=== PATIENT | female | born 1930 | race Caucasian/White ===

== ENCOUNTER 2016-09-28 11:56 | Emergency (ER) | payer MEDICARE ==
[~2016-09-28] VITALS: Ht 167.6 cm; Wt 112.9 kg
[~2016-09-28 11:56] MED LIST: ASPI325T PO; ATEN-102 PO; GLUCTAB PO; LOVA40TA PO
[2016-09-28 12:00] VITALS: BP 208/85; PULSE 76; RESP 20; TEMP 97.6; O2SAT 98
[2016-09-28] MEDS ORDERED: FOSA70TA PO (12:23)
[2016-09-28] MEDS ORDERED: A REDS 2 PO (12:23)
[2016-09-28] MEDS ORDERED: LOVA40TA PO (12:23)
[2016-09-28] MEDS ORDERED: ASPI81CH37 CHEW (12:23)
[2016-09-28] MEDS ORDERED: ALPH200C2 PO (12:23)
[2016-09-28] MEDS ORDERED: MULT-159 PO (12:23)
[2016-09-28] MEDS ORDERED: VITA100064 PO (12:23)
[2016-09-28] MEDS ORDERED: CARB25TA9 PO (12:23)
[2016-09-28] MEDS ORDERED: ATEN50TA PO (12:23)
[2016-09-28] MEDS ORDERED: SODIUM CHLORIDE 0.9% FLUSH 10 ML FLUSH IVF PRN (12:30)
--- NOTE | 2016-09-28 12:30 | PD ---
HPI Chief Complaint: Neuro Symptoms/ Deficits Time Seen by Provider: 12:26 Travel History International Travel<30 days: No Contact w/Intl Traveler<30days: No Traveled to known affect area: No History of Present Illness HPI Patient presents with complaints of TIA type symptoms. States she was getting her hair done this morning when she experienced 3 minutes of difficulty with speech and right lower extremity weakness. Occurred approximately one hour prior to arrival. Denies any upper extremity weakness. Followed by neurology Dr. Benedict for Parkinson's. Reports a recent MRI. Past medical history for hypertension hyperlipidemia and osteoporosis. States she took her blood pressure medications last night. Takes her medications at night. Compliant with 2 baby aspirins daily. Symptom free at this time. She is not a diabetic [facility] Past Medical History High Cholesterol: Yes Diabetes: Yes Patient Takes Glucophage: No Hypertension: Yes Parkinson's Disease: Yes ?: Not Menopausal: Yes Past Surgical History Other Surgery: Yes (partial thyroidectomy ) Social History Alcohol Use: Yes (wine occasionally) Tobacco Use: No Substance Use: No Allergies-Medications (Allergen,Severity, Reaction): Coded Allergies: Sulfa (Verified Allergy, Unknown, 09/28/16) states she doesn't remember Reported Meds & Prescriptions Reported Meds & Active Scripts Active Reported Alpha Lipoic Acid 200 Mg Cap 200 Mg PO DAILY Vitamin D3 (Cholecalciferol) 1,000 Unit Tab 1,000 Units PO DAILY Multivitamins (Multivitamin) 1 Each Tab.chew 1 Tab PO DAILY Fosamax (Alendronate Sodium) 70 Mg Tab 70 Mg PO Q7D [A Reds 2] 1 Tab PO BID Aspirin Low Dose (Aspirin) 81 Mg Chew 162 Mg CHEW DAILY Atenolol 50 Mg Tab 50 Mg PO HS Lovastatin 40 Mg Tab 40 Mg PO DAILY Carbidopa-Levodopa 25-100 Mg Tab 1 Tab PO QID Review of Systems General / Constitutional: No: Fever Eyes: No: Visual changes HENT: No: Headaches Cardiovascular: No: Chest Pain or Discomfort Respiratory: No: Shortness of Breath Gastrointestinal: No: Abdominal Pain Genitourinary: No: Dysuria Musculoskeletal: No: Pain Skin: No Rash Neurologic: Positive: Coordination Problem, Slurred Speech, No: Weakness Psychiatric: No: Depression Endocrine: No: Polydipsia Hematologic/Lymphatic: No: Easy Bruising Physical Exam Narrative GENERAL: [-] SKIN: Focused skin assessment warm/dry. HEAD: Atraumatic. Normocephalic. EYES: Pupils equal and round. No scleral icterus. No injection or drainage. ENT: No nasal bleeding or discharge. Mucous membranes pink and moist. NECK: Trachea midline. No JVD. CARDIOVASCULAR: Regular rate and rhythm. No murmur appreciated. RESPIRATORY: No accessory muscle use. Clear to auscultation. Breath sounds equal bilaterally. GASTROINTESTINAL: Abdomen soft, non-tender, nondistended. Hepatic and splenic margins not palpable. MUSCULOSKELETAL: No obvious deformities. No clubbing. No cyanosis. No edema. NEUROLOGICAL: Awake and alert. No obvious cranial nerve deficits. Motor grossly within normal limits. Normal speech. PSYCHIATRIC: Appropriate mood and affect; insight and judgment normal. Data Data Last Documented VS Vital Signs Date Time Temp Pulse Resp B/P Pulse Ox O2 Delivery O2 Flow Rate FiO2 09/28/16 13:59 142/68 09/28/16 12:55 69 18 99 Room Air 09/28/16 12:00 97.6 Orders Electrocardiogram (09/28/16 12:30) Complete Blood Count With Diff (09/28/16 12:30) Comprehensive Metabolic Panel (09/28/16 12:30) Urinalysis - C+S If Indicated (09/28/16 12:30) Ct Brain W/O Iv Contrast(Rout) (09/28/16 12:30) Ecg Monitoring (09/28/16 12:30) Iv Access Insert/Monitor (09/28/16 12:30) Oximetry (09/28/16 12:30) Sodium Chloride 0.9% Flush (Ns Flush) (09/28/16 12:30) Clonidine (Catapres) (09/28/16 12:45) Dipyridamole-Aspirin 200-25 Mg (Aggrenox (09/28/16 14:00) Labs Laboratory Tests Test 09/28/16 09/28/16 12:50 14:17 White Blood Count 7.8 TH/MM3 Red Blood Count 4.34 MIL/MM3 Hemoglobin 13.1 GM/DL Hematocrit 39.0 % Mean Corpuscular Volume 89.8 FL Mean Corpuscular Hemoglobin 30.3 PG Mean Corpuscular Hemoglobin 33.7 % Concent Red Cell Distribution Width 12.1 % Platelet Count 200 TH/MM3 Mean Platelet Volume 8.3 FL Neutrophils (%) (Auto) 69.9 % Lymphocytes (%) (Auto) 19.9 % Monocytes (%) (Auto) 8.8 % Eosinophils (%) (Auto) 1.0 % Basophils (%) (Auto) 0.4 % Neutrophils # (Auto) 5.4 TH/MM3 Lymphocytes # (Auto) 1.6 TH/MM3 Monocytes # (Auto) 0.7 TH/MM3 Eosinophils # (Auto) 0.1 TH/MM3 Basophils # (Auto) 0.0 TH/MM3 CBC Comment DIFF FINAL Differential Comment Sodium Level 137 MEQ/L Potassium Level 4.7 MEQ/L Chloride Level 103 MEQ/L Carbon Dioxide Level 24.5 MEQ/L Anion Gap 10 MEQ/L Blood Urea Nitrogen 29 MG/DL Creatinine 1.10 MG/DL Estimat Glomerular Filtration 47 ML/MIN Rate Random Glucose 94 MG/DL Calcium Level 9.2 MG/DL Total Bilirubin 0.5 MG/DL Aspartate Amino Transf 20 U/L (AST/SGOT) Alanine Aminotransferase 11 U/L (ALT/SGPT) Alkaline Phosphatase 88 U/L Total Protein 7.2 GM/DL Albumin 3.6 GM/DL Urine Collection Type CLEAN CATCH Urine Color STRAW Urine Turbidity CLEAR Urine pH 6.0 Urine Specific [place] 1.006 Urine Protein NEG mg/dL Urine Glucose (UA) NEG mg/dL Urine Ketones NEG mg/dL Urine Occult Blood NEG Urine Nitrite NEG Urine Bilirubin NEG Urine Leukocyte Esterase SMALL Urine WBC 3-5 /hpf Urine Squamous Epithelial > 8 /hpf Cells Urine Transitional Epithelial 0-5 /hpf Cells Urine Amorphous Sediment MOD Urine Hyaline Casts 0-2 /lpf Microscopic Urinalysis Comment CULT NOT INDICATED Urine Collection Time 1417 MDM Medical Decision Making Medical Screen Exam Complete: Yes Emergency Medical Condition: Yes Differential Diagnosis TIA, CVA, hypoglycemia, dysrhythmia, electrolyte imbalance, sepsis, UTI Narrative Course Assessment and plan discussed with patient at bedside. Elevated blood pressure noted, clonidine provided. ABCD squared scoring determined to be at low risk. EKG reveals sinus rhythm with first-degree AV block rate of 65. Blood pressure much improved with clonidine. Last [address] 09/28/16 1230 Signed Impressions: Service Date/Time: Wednesday, September 28, 2016 13:01 - CONCLUSION: No evidence of acute infarct, hemorrhage, mass or edema. Jose Carlos Modi MD Patient reports she has not taken any sulfa medications and 72 years. Unknown if truly allergic. Tolerated Aggrenox dose while in the emergency room Diagnosis Primary Impression: TIA (transient ischemic attack) Qualified Code: G45.9 - Transient cerebral ischemia, unspecified type Additional Instructions: Patient is scheduled to follow-up with neurology this week. Encouraged her follow up with PCP as well. Encouraged to return to the emergency room with any change or new onset of symptoms. Discontinue aspirin, encouraged a blood pressure log for evaluation with her PCP. Encouraged to take her atenolol every morning rather than daily at bedtime. Med/Other Pt SpecificInfo: Prescription(s) given Scripts Dipyridamole-Aspirin (Aggrenox)200-25 Mg Cap1 Cap PO BID #60 CAP Ref 0 Prov:Jordon Shafer MD 09/28/16 Disposition: 01 DISCHARGE HOME Condition: Good Jordon Shafer MD Sep 28, 2016 12:30
[2016-09-28] MEDS ORDERED: cloNIDine HCL 0.1 MG TAB PO ONE (12:45)
[2016-09-28 12:55] VITALS: BP 191/80; PULSE 69; RESP 18; O2SAT 99
[2016-09-28 12:59] LABS: AUTOMATED NEUTROPHIL # 5.4 TH/MM3 (1.8-7.7); BASOPHIL % 0.4 % (0.0-2.0); EOSINOPHIL # 0.1 TH/MM3 (0-0.4); HEMO FLAGS DIFF FINAL; LYMPH % 19.9 % (9.0-44.0); LYMPHOCYTE # 1.6 TH/MM3 (1.0-4.8); MEAN CELL VOLUME 89.8 FL (80.0-100.0); MEAN CORPUSCULAR HEMOGLOBIN 30.3 PG (27.0-34.0); MEAN CORPUSCULAR HGB CONC 33.7 % (32.0-36.0); MONO % 8.8 % (0.0-8.0); NEUT % 69.9 % (16.0-70.0); PLATELET COUNT 200 TH/MM3 (150-450); RED BLOOD COUNT 4.34 MIL/MM3 (4.00-5.30); RED CELL DISTRIBUTION WIDTH 12.1 % (11.6-17.2); WHITE BLOOD COUNT 7.8 TH/MM3 (4.0-11.0)
[2016-09-28 13:18] LABS: CHLORIDE 103 MEQ/L (98-107); POTASSIUM 4.7 MEQ/L (3.5-5.1); SODIUM (NA) 137 MEQ/L (136-145)
--- NOTE | 2016-09-28 13:19 | RADRPT ---
EXAM DATE/TIME: 09/28/2016 13:01 [facility] COMPARISON: No previous studies available for comparison. INDICATIONS : Unable to focus & unable to lift right foot.Hx parkinson's RADIATION DOSE: 66.79 CTDIvol (mGy) MEDICAL HISTORY : Parkinson's. Hypertension. SURGICAL HISTORY : Partial thyroidectomy. ENCOUNTER: Initial ACUITY: 1 day PAIN SCALE: 0/10 LOCATION: cranial TECHNIQUE: Multiple contiguous axial images were obtained of the head. Using automated exposure control and adjustment of the mA and/or kV according to patient size, radiation dose was kept as low as reasonably achievable to obtain optimal diagnostic quality images. DICOM format image data is av ailable electronically for review and comparison. FINDINGS: CEREBRUM: The ventricles are normal for age. No evidence of midline shift, mass lesion, hemorrha ge or acute infarction. No extra-axial fluid collections are seen. POSTERIOR FOSSA: The cerebellum and brainstem are intact. The 4th ventricle is midline. The cer ebellopontine angle is unremarkable. EXTRACRANIAL: The visualized portion of the orbits is intact. SKULL: The calvaria is intact. No evidence of skull fracture. CONCLUSION: No evidence of acute infarct, hemorrhage, mass or edema. Jose Carlos Modi MD on September 28, 2016 at 13:17 Board Certified Radiologist. This report was verified electronically.
[2016-09-28 13:21] LABS: ANION GAP 10 MEQ/L (5-15); BICARBONATE 24.5 MEQ/L (21.0-32.0); BLOOD UREA NITROGEN 29 MG/DL (7-18)
[2016-09-28 13:24] LABS: ALT (GPT) 11 U/L (10-53); AST (GOT) 20 U/L (15-37); GLOMERULAR FILTRATION RATE 47 ML/MIN (>89)
[2016-09-28 13:26] LABS: TOTAL BILIRUBIN ADULT 0.5 MG/DL (0.2-1.0)
[2016-09-28 13:27] LABS: ALKALINE PHOSPHATASE 88 U/L (45-117)
[2016-09-28 13:59] VITALS: BP 142/68
[2016-09-28] MEDS ORDERED: DIPYRIDAMOLE/ASPIRIN 200 MG/25 MG CAP PO ONE (14:00)
[2016-09-28 14:24] LABS: BLOOD, URINE NEG (NEG); GLUCOSE,URINE NEG (NEG); KETONE, URINE NEG (NEG); NITRITE,URINE NEG (NEG)
[2016-09-28 14:27] LABS: METHOD OF COLLECTION CLEAN CATCH; URINE COLOR STRAW (YELLW/STRAW)
[2016-09-28 14:29] LABS: COMMENT (UR) CULT NOT INDICATED; CULTURE IF INDICATED CULT NOT INDICATED; SQUAMOUS EPITHELIAL CELL URINE > 8 /hpf (0-5)
[2016-09-28 14:30] LABS: COMMENT2 (UR) MUCOUS PRESENT
[2016-09-28 14:31] LABS: HYALINE CAST, URINE 0-2 /lpf (RARE); TRANSITIONAL EPI CELLS, URINE 0-5 /hpf
[2016-09-28] MEDS ORDERED: AGGR20025 PO (14:35)
--- NOTE | 2016-09-28 17:15 | EKG ---
Date Performed: 09/28/2016 Time Performed: 12:47:51 PTAGE: 86 years EKG: Sinus rhythm WITH FIRST DEGREE AV BLOCK ABNORMAL ECG Compared to prior tracing no significant change PREVIOUS TRACING : 06/12/2013 10.54 DOCTOR: Philip Beal Interpretating Date/Time 09/28/2016 17:12:46
[2016-10-04] MEDS ORDERED: MULT10CA PO (11:32)
== END 2016-09-28 14:54 | disposition home or self-care (01) ==
LOC: PHED 11:56
DX: G45.9 Transient cerebral ischemic attack, unspecified (principal); G20 Parkinson's disease; I10 Essential (primary) hypertension; Z79.899 Other long term (current) drug therapy
CPT/HCPCS: 70450; 80053; 81001; 85025; 93005; 99285

== ENCOUNTER 2016-10-09 09:50 | Observation (INO) | payer MEDICARE ==
[2016-10-09] VITALS (7 sets, daily range): BP systolic 125–145; BP diastolic 53–67; PULSE 66–75; RESP 16–18; TEMP 97.5–98.2; O2SAT 95–97
[~2016-10-09] VITALS: Ht 167.6 cm; Wt 111.1 kg
[~2016-10-09 09:50] MED LIST changes: +AGGR20025 PO; +ALPH200C2 PO; -ASPI325T PO; +ASPI81CH37 CHEW; -ATEN-102 PO; +ATEN50TA PO; +CARB25TA9 PO; +FOSA70TA PO; -GLUCTAB PO; +MULT-159 PO; +MULT10CA PO; +VITA100064 PO
[2016-10-09] MEDS ORDERED: SODIUM CHLORIDE 0.9% FLUSH 10 ML FLUSH IVF PRN (10:45)
--- NOTE | 2016-10-09 10:49 | PD ---
HPI Chief Complaint: Neuro Symptoms/ Deficits Time Seen by Provider: 10:05 Travel History International Travel<30 days: No Contact w/Intl Traveler<30days: No Traveled to known affect area: No History of Present Illness HPI 86-year-old woman who presents to the emergency department complaining of back pain, TIA symptoms, and chest pain. She reports a history of chronic back problems. She has pain daily that limits her activities. Is acutely worse with activity. She reports that this back pain was worse over the past couple days. Chest reports some pain in the hips. Along with this she's also reported some pain and pressure in her chest which is new for her. She states she's had some limitation or activities due to shortness of breath. Together with this she's also been having intermittent episodes of speech difficulty. This first started several days ago when she had an episode of right sided weakness and speech difficulties lasted just a minute or 2. She was seen in the emergency department at that time. She was felt to be low risk. She follows with Dr. Audra cisneros for Parkinson's. She had a CT scan some labs on that were normal. She is recommended to follow-up for possible TIA. She has since followed up with Dr. Audra cisneros. 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 She saw Dr. Audra cisneros since he seen emergency Department, no additional tests were ordered. They did change the timing of her blood pressure medicine and started her on additional aspirin. She reports that she has since then had 2 more episodes, lasting just one to 2 minutes at a time, consisting of just speech difficulty, including one today. Because of the back pain chest pain and TIA symptoms she presents to the emergency department. History Past Medical History Narrative Medical Parkinson's Hypertension hyperlipidemia Osteoporosis Menopausal: Yes Social History Alcohol Use: Yes (wine occasionally) Tobacco Use: No Allergies-Medications (Allergen,Severity, Reaction): Coded Allergies: Sulfa (Sulfonamide Antibiotics) (Unverified Allergy, Unknown, 10/09/16) states she doesn't remember Reported Meds & Prescriptions Reported Meds & Active Scripts Active Aggrenox (Dipyridamole/Aspirin) 200-25 Mg Cap 1 Cap PO BID Reported Preservision Areds 2 Softgel (Vit C/E/Zn/Coppr/Lutein/Zeaxan) 1 Each Capsule 1 Cap PO BID Alpha Lipoic Acid 200 Mg Cap 200 Mg PO DAILY Vitamin D3 (Cholecalciferol) 1,000 Unit Tab 1,000 Units PO DAILY Multivitamins (Multivitamin) 1 Each Tab.chew 1 Tab PO DAILY Fosamax (Alendronate Sodium) 70 Mg Tab 70 Mg PO Q7D Aspirin Low Dose (Aspirin) 81 Mg Chew 162 Mg CHEW DAILY Atenolol 50 Mg Tab 50 Mg PO HS Lovastatin 40 Mg Tab 40 Mg PO DAILY Carbidopa-Levodopa 25-100 Mg Tab 1 Tab PO QID Review of Systems Except as stated in HPI: all other systems reviewed are Neg Physical Exam Narrative GENERAL: Well-appearing 86-year-old woman, no acute distress. SKIN: Focused skin assessment warm/dry. HEAD: Atraumatic. Normocephalic. EYES: Pupils equal and round. No scleral icterus. No injection or drainage. ENT: No nasal bleeding or discharge. Mucous membranes pink and moist. NECK: Trachea midline. No JVD. CARDIOVASCULAR: Regular rate and rhythm. No murmur appreciated. RESPIRATORY: No accessory muscle use. Clear to auscultation. Breath sounds equal bilaterally. GASTROINTESTINAL: Abdomen soft, non-tender, nondistended. Hepatic and splenic margins not palpable. MUSCULOSKELETAL: No obvious deformities. No clubbing. No cyanosis. No edema. NEUROLOGICAL: Awake and alert. No obvious cranial nerve deficits. Motor grossly within normal limits. Normal speech. PSYCHIATRIC: Appropriate mood and affect; insight and judgment normal. Data Data Last Documented VS Vital Signs Date Time Temp Pulse Resp B/P (MAP) Pulse Ox O2 Delivery O2 Flow Rate FiO2 10/09/16 11:41 70 133/56 (81) 97 10/09/16 10:00 98.0 16 Orders Orders Electrocardiogram (10/09/16 10:34) Complete Blood Count With Diff (10/09/16 10:34) Comprehensive Metabolic Panel (10/09/16 10:34) Magnesium (Mg) (10/09/16 10:34) Prothrombin Time / Inr (Pt) (10/09/16 10:34) Act Partial Throm Time (Ptt) (10/09/16 10:34) Troponin I (10/09/16 10:34) Ecg Monitoring (10/09/16 10:34) Iv Access Insert/Monitor (10/09/16 10:34) Oximetry (10/09/16 10:34) Oxygen Administration (10/09/16 10:34) Sodium Chloride 0.9% Flush (Ns Flush) (10/09/16 10:45) Chest, Pa & Lat (10/09/16 10:34) Urinalysis - C+S If Indicated (10/09/16 10:48) Admit Order (Ed Use Only) (10/09/16 ) Labs Laboratory Tests Test 10/09/16 10:45 10/09/16 11:07 White Blood Count 7.0 TH/MM3 Red Blood Count 4.28 MIL/MM3 Hemoglobin 13.2 GM/DL Hematocrit 39.2 % Mean Corpuscular Volume 91.4 FL Mean Corpuscular Hemoglobin 30.7 PG Mean Corpuscular Hemoglobin Concent 33.6 % Red Cell Distribution Width 12.7 % Platelet Count 242 TH/MM3 Mean Platelet Volume 8.3 FL Neutrophils (%) (Auto) 77.2 % Lymphocytes (%) (Auto) 15.2 % Monocytes (%) (Auto) 5.2 % Eosinophils (%) (Auto) 1.9 % Basophils (%) (Auto) 0.5 % Neutrophils # (Auto) 5.4 TH/MM3 Lymphocytes # (Auto) 1.1 TH/MM3 Monocytes # (Auto) 0.4 TH/MM3 Eosinophils # (Auto) 0.1 TH/MM3 Basophils # (Auto) 0.0 TH/MM3 CBC Comment DIFF FINAL Differential Comment Prothrombin Time 11.1 SEC Prothromb Time International Ratio 1.0 RATIO Activated Partial Thromboplast Time 23.6 SEC Blood Urea Nitrogen 36 MG/DL Creatinine 1.10 MG/DL Random Glucose 104 MG/DL Total Protein 7.2 GM/DL Albumin 3.7 GM/DL Calcium Level 9.5 MG/DL Magnesium Level 2.4 MG/DL Alkaline Phosphatase 79 U/L Aspartate Amino Transf (AST/SGOT) 12 U/L Alanine Aminotransferase (ALT/SGPT) 8 U/L Total Bilirubin 0.4 MG/DL Sodium Level 139 MEQ/L Potassium Level 4.6 MEQ/L Chloride Level 104 MEQ/L Carbon Dioxide Level 26.4 MEQ/L Anion Gap 9 MEQ/L Estimat Glomerular Filtration Rate 47 ML/MIN Troponin I LESS THAN 0.02 NG/ML Urine Collection Type CLEAN CATCH Urine Color YELLOW Urine Turbidity CLEAR Urine pH 6.0 Urine Specific [place] 1.017 Urine Protein TRACE mg/dL Urine Glucose (UA) NEG mg/dL Urine Ketones NEG mg/dL Urine Occult Blood NEG Urine Nitrite NEG Urine Bilirubin NEG Urine Leukocyte Esterase SMALL Urine RBC 0-3 /hpf Urine WBC 3-5 /hpf Urine Squamous Epithelial Cells 6-8 /hpf Microscopic Urinalysis Comment CULT NOT INDICATED Urine Collection Time 11:07 [facility] Medical Decision Making Medical Screen Exam Complete: Yes Emergency Medical Condition: Yes Interpretation(s) My review of EKG: Normal sinus rhythm at a rate of 74, normal axis, AR intervals 233 with first-degree AV block, no definite evidence of acute ischemia LABS: CBC is unremarkable. CMP is generally unremarkable. Troponins negative. Coags are unremarkable. UA is unremarkable. Chest x-ray: Negative. Differential Diagnosis TIA, ACS, dyspnea, UTI, other Narrative Course Medical decision making INITIAL: This is an 86-year-old woman with intermittent episodes of confusion/ word-finding difficulties potentially consistent with TIA symptoms. She had some unilateral weakness with previous episodes. She looks well. She is on aspirin. Also discussed her TIA symptoms her care while to see if he feels like to be benefit from admission given that she started had substantial workup as an outpatient. Regarding her chest pain, also check labs and chest x-ray, and reassess. The back pain seems pretty chronic for her. We'll check a UA. FINAL: Intermittent episodes of confusion speech difficulties, concerning for crescendo TIA symptoms. I spoke with Dr. Evans, the patient's neurologist, recommend admission. Recommend increasing aspirin a full dose, CTA head and neck, neurology consult, admission. I spoke with patient's admitting physician , Dr. Dr. Ambriz, will admit patient. Diagnosis Primary Impression: TIA (transient ischemic attack) Akin Elliott MD Oct 09, 2016 10:49
[2016-10-09 10:59] LABS: AUTOMATED NEUTROPHIL # 5.4 TH/MM3 (1.8-7.7); BASOPHIL % 0.5 % (0.0-2.0); EOSINOPHIL # 0.1 TH/MM3 (0-0.4); EOSINOPHIL % 1.9 % (0.0-4.0); HEMATOCRIT 39.2 % (35.0-46.0); HEMO FLAGS DIFF FINAL; LYMPH % 15.2 % (9.0-44.0); LYMPHOCYTE # 1.1 TH/MM3 (1.0-4.8); MEAN CELL VOLUME 91.4 FL (80.0-100.0); MEAN CORPUSCULAR HEMOGLOBIN 30.7 PG (27.0-34.0); MEAN CORPUSCULAR HGB CONC 33.6 % (32.0-36.0); MONO % 5.2 % (0.0-8.0); NEUT % 77.2 % (16.0-70.0); PLATELET COUNT 242 TH/MM3 (150-450); RED BLOOD COUNT 4.28 MIL/MM3 (4.00-5.30); RED CELL DISTRIBUTION WIDTH 12.7 % (11.6-17.2)
[2016-10-09 11:08] LABS: CHLORIDE 104 MEQ/L (98-107); POTASSIUM 4.6 MEQ/L (3.5-5.1); SODIUM (NA) 139 MEQ/L (136-145)
[2016-10-09 11:11] LABS: ANION GAP 9 MEQ/L (5-15); APTT (PATIENT) 23.6 SEC (24.3-30.1); BICARBONATE 26.4 MEQ/L (21.0-32.0); BLOOD UREA NITROGEN 36 MG/DL (7-18); MAGNESIUM 2.4 MG/DL (1.5-2.5); PROTHROMBIN TIME - PATIENT 11.1 SEC (9.8-11.6)
[2016-10-09 11:14] LABS: ALT (GPT) 8 U/L (10-53); GLOMERULAR FILTRATION RATE 47 ML/MIN (>89)
[2016-10-09 11:15] LABS: AST (GOT) 12 U/L (15-37); TOTAL BILIRUBIN ADULT 0.4 MG/DL (0.2-1.0)
--- NOTE | 2016-10-09 11:15 | RADRPT ---
EXAM DATE/TIME: 10/09/2016 10:53 [facility] COMPARISON: CHEST PA & LAT, June 12, 2013, 11:11. INDICATIONS : Chest pressure, back pain, dizziness, difficulty with speech. MEDICAL HISTORY : Hypercholesterolemia. Hypertension Parkinson's SURGICAL HISTORY : Total knee replacement, right. Partial thyroidectomy. ENCOUNTER: Initial ACUITY: 2 days PAIN SCORE: 7/10 LOCATION: chest FINDINGS: Calcified granuloma at the left lung base. Aortic calcifications and degenerative changes of the spin e. No consolidation or effusion. CONCLUSION: No acute disease. Ravi Castro MD on October 09, 2016 at 11:13 Board Certified Radiologist. This report was verified electronically.
[2016-10-09 11:17] LABS: ALKALINE PHOSPHATASE 79 U/L (45-117)
[2016-10-09 11:23] LABS: BLOOD, URINE NEG (NEG); GLUCOSE,URINE NEG (NEG); KETONE, URINE NEG (NEG); NITRITE,URINE NEG (NEG)
[2016-10-09 11:47] LABS: COMMENT (UR) CULT NOT INDICATED; CULTURE IF INDICATED CULT NOT INDICATED; METHOD OF COLLECTION CLEAN CATCH; RBC, URINE 0-3 /hpf (0-3); URINE COLOR YELLOW (YELLW/STRAW)
[2016-10-09] MEDS ORDERED: ALENDRONATE SODIUM 70 MG TAB PO SCH (14:30)
[2016-10-09] MEDS ORDERED: SODIUM CHLORIDE 0.9% FLUSH 5 ML FLUSH IV FLUSH PRN (14:30)
[2016-10-09] MEDS ORDERED: ENALAPRILAT 1.25 MG/ML VIAL IV PRN (14:30)
[2016-10-09 15:50] LABS: CREATINE KINASE 40 U/L (26-192)
--- NOTE | 2016-10-09 16:12 | RADRPT ---
EXAM DATE/TIME: 10/09/2016 15:53 [facility] COMPARISON: CT BRAIN W/O CONTRAST, September 28, 2016, 13:01. INDICATIONS : Weakness and dysphasia, since subsided. RADIATION DOSE: 66.14 CTDIvol (mGy) MEDICAL HISTORY : Cerebrovascular disease. Parkinsons. Hypertension. SURGICAL HISTORY : None. ENCOUNTER: Initial ACUITY: 1 day PAIN SCALE: 0/10 LOCATION: cranial TECHNIQUE: Multiple contiguous axial images were obtained of the head. Using automated exposure control and adj ustment of the mA and/or kV according to patient size, radiation dose was kept as low as reasonably a chievable to obtain optimal diagnostic quality images. DICOM format image data is available electro nically for review and comparison. FINDINGS: CEREBRUM: The ventricles are normal for age. No evidence of midline shift, mass lesion, hemorrhage or acute in farction. No extra-axial fluid collections are seen. POSTERIOR FOSSA: The cerebellum and brainstem are intact. The 4th ventricle is midline. The cerebellopontine angle i s unremarkable. EXTRACRANIAL: The visualized portion of the orbits is intact. SKULL: The calvaria is intact. No evidence of skull fracture. CONCLUSION: 1. Normal appearance of the brain. 2. Carotid and vertebral artery calcifications. Ravi Castro MD on October 09, 2016 at 16:09 Board Certified Radiologist. This report was verified electronically.
[2016-10-09] MEDS: ENOXAPARIN SODIUM 30 MG/0.3 ML SYRINGE SQ SCH (17:01)
[2016-10-09] MEDS: CARBIDOPA/LEVODOPA 25 MG/100 MG TAB PO SCH ×2 (17:03→21:27)
--- NOTE | 2016-10-09 17:09 | RADRPT ---
EXAM DATE/TIME: 10/09/2016 16:32 [facility] COMPARISON: No previous studies available for comparison. EXTERNAL COMPARISON : [facility], CTA CAROTID ARTERIES W 3D PROCESSING, July 25, 2016 INDICATIONS : Cerebrovascular accident. MEDICAL HISTORY : Hypercholesterolemia. Hypertension. Multiple TIA's. arthritis. diabetes. parkinson's disease. SURGICAL HISTORY : Right knee replacement. Partial thyroidectomy. ENCOUNTER: Subsequent ACUITY: 1 day PAIN SCORE: 0/10 LOCATION: Right neck PEAK SYSTOLIC VELOCITIES (cm/sec): ICA/CCA RATIO: Right: 1.1 Left: 1.1 ICA: Right: 103 Left: 109 CCA: Right: 112 Left: 131 ECA: Right: 104 Left: 106 VERTEBRAL: Right: 81 antegrade Left: 56 antegrade Elevated flow velocities and ICA/CCA ratios have been found to correlate with increased degrees of vessel stenosis, calculated as percentage of diameter relative to a normal segment of distal ICA/CCA FINDINGS: RIGHT CAROTID: No significant stenosis is visualized. The waveforms are within normal limits. LEFT CAROTID: No significant stenosis is visualized. The waveforms are within normal limits. VERTEBRAL ARTERIES: Antegrade flow is seen in both vertebral arteries. MISCELLANEOUS: None. CONCLUSION: 1. No evidence for hemodynamically significant stenosis. 2. Antegrade flow in the bilateral vertebral arteries. Ravi Castro MD on October 09, 2016 at 17:07 Board Certified Radiologist. This report was verified electronically.
[2016-10-09] MEDS ORDERED: ACETAMINOPHEN/HYDROcodone 325 MG/5 MG TAB PO PRN (19:30)
[2016-10-09 20:42] LABS: CREATINE KINASE 34 U/L (26-192)
[2016-10-09] MEDS ORDERED: DIPYRIDAMOLE/ASPIRIN 200 MG/25 MG CAP PO SCH (21:00)
[2016-10-09] MEDS ORDERED: NON-FORMULARY DRUG (Vit C/E/Zn/Coppr/Lutein/Zeaxan (Preservision Areds 2 Softgel) 1 CAP) PO SCH (21:00)
[2016-10-09] MEDS ORDERED: ATENOLOL 50 MG TAB PO SCH (21:00)
[2016-10-09] MEDS: DIPYRIDAMOLE/ASPIRIN 200 MG/25 MG CAP PO SCH (21:25)
[2016-10-09] MEDS: SODIUM CHLORIDE 0.9% FLUSH 5 ML FLUSH IV FLUSH SCH (21:28)
[2016-10-10] VITALS (8 sets, daily range): BP systolic 115–170; BP diastolic 52–71; PULSE 60–104; RESP 16–19; TEMP 95.6–97.5; O2SAT 93–100
[2016-10-10 04:35] LABS: CREATINE KINASE 37 U/L (26-192)
--- NOTE | 2016-10-10 06:55 | MH ---
cc: LILIAN ZHANG DATE OF ADMISSION 10/09/2016 DIAGNOSIS TIA HISTORY OF PRESENT ILLNESS Ms. Bird is a very pleasant 86 year-old female who presents to the emergency room after having difficulties with speech last night. 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 The words would not come out to express herself initially. This is not the first time this has happened to her. This is actually her third episode since 2013. She states after she did this that night she was very uncomfortable in bed, had a difficult time getting to sleep. Actually developed a headache at one point. She developed some upper back pain between her shoulder blades. She also states she developed some retrosternal chest pain that ached, did not radiate. She states it lasted approximately an hour. She does not mention any shortness of breath when this occurred, however, she said she was more short of breath this morning when she was active. Perhaps a little bit lightheaded. This morning friend called on her to see how she was doing as she had not gone to dinner secondary to her knee pain and at that point, she decided to come to the emergency room to be evaluated as the speech difficulty from the night prior, as well as a chest pain during the middle of the night had her concerned. Of significant, she was in the emergency room almost two weeks ago with symptoms of difficulty with speech and right lower extremity weakness while she was at the [facility]. At that at that time, she was evaluated and her symptoms had resolved and she was discharged on Aggrenox with instructions to follow up regarding a transient elevation of blood pressure that she had in the emergency room. She did follow up with her neurologist who is Dr. Canales. He normally treats her for Parkinson's and at that point, he recommended that she continue on the Aggrenox, that she was to take that twice a day, as well as her baby aspirin. She normally takes meloxicam for her knee pain and her back pain, but that really had not been helping her so she had actually stopped that and he had started her on some [place] which she had taken very scarcely. She did take it the morning of this event. 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 The last that I said I am recalling some memory, I need to confirm that going through the records. She also did have a CTA of the carotid arteries done at that time. Currently she has not had any further episodes with speech difficulty since last p.m. and has remained chest pain-free. PAST MEDICAL HISTORY Significant for: 1. Diet-controlled diabetes 2. Hypertension 3. Hyperlipidemia 4. Parkinson's 5. She does have lumbar stenosis as well as osteoarthritis of her knees. PAST SURGICAL HISTORY Includes: 1. Partial thyroidectomy 2. Cataract surgery 3. Right knee replacement ALLERGIES INCLUDE SULFA AND ACCORDING TO THE DAUGHTER WHO WERE IN THE ROOM WITH HER WHEN SHE HAD HER KNEE SURGERY, SHE DID NOT TOLERATE MORPHINE VERY WELL BECOMING VERY CONFUSED. MEDICATIONS Include: 1. Alendronate 70 mg once a week 2. Vitamin D3 1000 units daily 3. Lovastatin 40 mg daily 4. She takes a Multivitamin. 5. She has been taking the Aggrenox 225 twice a day for the last two weeks. 6. She takes atenolol 75 mg at bedtime. 7. She takes Sinemet at 07:00 a.m. 12 noon, 05:00 p.m. and 09:00 p.m. 8. She has been on the baby aspirin as well. 9. She has been on Green [place] which is new for her. She is unable to tell me the dose, she has been taking it infrequently. SOCIAL HISTORY She does not smoke. She occasionally has a glass of wine. She is . She has family locally. She has a daughter nearby. She is relatively independent in her activities of daily living. She does use a walker at times. REVIEW OF SYSTEMS No fevers. No chills. No cough. No palpitations. She has had the lightheadedness on occasion. She has had a good appetite. No weight loss. No weight gain. She has the chest pain as expressed before. She denies any abdominal pain, constipation or change in her bowel movement. She has no problems urinating. She does have chronic back pain and hip pain as well as knee pain, she does tell me that she feels that she has been a little bit more unsteady recently with her balance. PHYSICAL EXAM VITAL SIGNS: Temperature is 98.2, pulse of 73, respirations 18, blood pressure is 143/59, pulse ox is 97% on room air. GENERAL: She is alert and oriented, very pleasant and conversant. HEAD, EYES, EARS, NOSE, AND THROAT: Normocephalic, atraumatic. EOM's are intact. She has a clear oral mucosa. NECK: Supple. LUNGS: Clear to auscultation bilaterally. She has no rhonchi, rales or wheezes. HEART: Regular rate and rhythm. She has no ectopy or murmur. ABDOMEN: Benign. EXTREMITIES: Show no clubbing, cyanosis or edema. NEUROLOGIC: She has minimal, cogwheeling. Her speech is a little bit slow and low. LABORATORY DATA Lab work that was done when she came in with a white count of 7, hemoglobin of 13.2, hematocrit of 39.2, platelet count of 242. Sodium was 139, potassium 4.6, BUN was 36, creatinine 1.1, GFR was 47. Her initial troponin was less than 0.02. PT was 11.1 with an INR of 1. Her culture showed small leukocyte esterase. Culture was not indicated. In the emergency room, her CT was read as normal appearance of the brain with carotid and vertebral artery calcifications. Chest x-ray showed calcified granuloma of the left lung base with aortic calcifications and degenerative joint changes of the spine. No consolidation or effusion. Her EKG showed sinus rhythm with first-degree AV block. ASSESSMENT/PLAN An 86 year-old female presenting with speech difficulty suggestive of TIA, her second episode in two weeks, her third episode since 2013. At this point, she has been admitted for further imaging studies MRI, MRA of the brain as well as echocardiogram, carotid ultrasound, as well as a Holter. She has been on baby aspirin and Aggrenox. The next step-up would be to place her on Plavix at this point. Given her symptomatology, she did have recent imaging studies done and there is no significant change with the testing on this visit. A consideration would have to be done for looking for an arrhythmia more aggressively. We will have her on the telemetry here, but I did discuss with her and the neurologist, Dr. Cortez who has been seeing her that she may want to be discharged on an event monitor. In terms of her diabetes, she has done well with diet up until now. We will continue a diabetic diet while she is in the hospital. Hyperlipidemia, I will check her lipid profile her last lipids in the office have been well controlled. She is typically on lovastatin. I believe they will change her to Pravastatin while she is in the hospital. For hypertension, she is on the atenolol, she has an 75 mg once a day. We will monitor her heart rhythm on monitor, as well as her blood pressure. She never has truly had high blood pressure when she has been in the office, but if we find that it has been trending a little bit higher while she is here at the hospital, we may want to consider placing her on an PATITO inhibitor. In terms of the Parkinson's, we will keep her with her medications with the Sinemet on her scheduled dosing regimen. For the chronic back, hip and knee pain, she was on meloxicam and this was discontinued. We will try to tentatively put her on some Green Sea tonight should she need anything, monitor her response. I will also have physical therapy see her. Further recommendations as the case develops. MD BOUCHRA Gonzalez/SILVIA /7:13 PM /6:28 AM
[2016-10-10] MEDS: PRAVASTATIN SOD 40 MG TAB PO SCH (07:52)
[2016-10-10] MEDS: CHOLECALCIFEROL (VIT D3) 1000 UNIT TAB PO SCH (07:52)
[2016-10-10] MEDS: MULTIVITAMIN TAB PO SCH (07:52)
[2016-10-10] MEDS: CARBIDOPA/LEVODOPA 25 MG/100 MG TAB PO SCH ×4 (07:53→21:28)
[2016-10-10] MEDS: DIPYRIDAMOLE/ASPIRIN 200 MG/25 MG CAP PO SCH ×2 (07:53→21:28)
[2016-10-10] MEDS: SODIUM CHLORIDE 0.9% FLUSH 5 ML FLUSH IV FLUSH SCH ×2 (07:54→21:27)
--- NOTE | 2016-10-10 08:10 | MB ---
cc: JONH HARMON M.D., [facility] DATE OF CONSULTATION 10/09/2016 DATE OF 1930 REASON FOR CONSULTATION Possible TIA HISTORY The patient is an 86-year-old woman who sees my partner Dr. Evans in the office for TIAs as well as for Parkinson's disease. She has a known history of chronic back pain presented with TIA symptoms again, trouble expressing herself lasting for a few minutes. She has had quite a few episodes over the last year or so. It seems that they are getting more frequent. She does not have any weakness on one side of the body, but has trouble getting words out. She had a back pain as well chest pain when this occurred. Troponin's are on order for cardiac evaluation. She is on Aggrenox and a baby aspirin was added by my partner, but ER gave her two baby aspirins today. She had a headache as well. Currently denies headache, chest pain, shortness of breath, chronic back pain ongoing, as well as her knees. She states that she was taking at home some meloxicam for her chronic pain. She is also on Parkinson's medicine Sinemet. She has a known history of hypertension, Parkinson's, hyperlipidemia, osteoporosis and chronic back pain and knee pain. SOCIAL HISTORY She lives alone. She has a niece near by. Her son is in [place]. Occasional wine. No tobacco. ALLERGIES SULFA HOME MEDICATIONS 1. Aggrenox twice a day 2. Baby aspirin 3. I-caps 4. Alpha lipoic acid 5. Vitamin D3 6. Multivitamin 7. Fosamax 8. Atenolol 9. Lovastatin 10. Sinemet q.i.d. 2500 PHYSICAL EXAM On exam, vitals temperature is 97.8, pulse 66, respiratory rate 16, blood pressure 145/67. GENERAL: She is an 86-year-old woman lying in bed in no acute distress. Awake, alert. She is oriented and fluent. NEUROLOGIC: Her pupils reactive. Visual boles are full. Face symmetrical. Tongue midline. Motor huffman she does not exhibit any weakness. She does have a little bit of cogwheeling at the elbows bilaterally. DTRs are symmetrical. Cwwieq-wymr-lewpoy no past-pointing. She is a little slower bilaterally left may be more than right on the finger tapping toes. DTRs, as stated, are 1-2+. Sensory normal. Toes are downgoing. Her gait is withheld at this time. LABS Her labs are reviewed. Her CBC is unremarkable. PTT 23.6, BUN 36, creatinine 1.10, GFR 47, AST 12, ALT 8, two sets of troponin's were less than 0.02. CK 40. Urine small leuk esterase. IMAGING STUDIES Carotid ultrasound, no evidence of any stenosis. Antegrade flow in both carotids. Chest x-ray Unremarkable. CT head unremarkable. Some calcifications in the carotid and vertebral arteries. 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 CTA of the carotid 07/25/2016 showed 50% right carotid bifurcation stenosis. IMPRESSION An 86-year-old woman with Parkinson's disease. Continue Sinemet as you are doing. History of hypertension. Continue antihypertensives. TIA-like symptoms, I would recommend at this point getting an echo. She would benefit from either a loop recorder or prolonged Holter event monitor. She will undergo an MRI of the brain, MRA [place]. Carotids were just completed and reported as negative. Consideration would be at this point in time, since she has already had aspirin and Aggrenox, would be next step changing her to Plavix 75 mg a day. Other options certainly would be Eliquis, however, it would be more beneficial if we did the event monitor and/or loop recorder to see if she does have any paroxysmal atrial fibrillation. The intracranial stenosis will be monitored as well looking at the [place] MRA for comparison. If stable, I anticipate likely discharge tomorrow and have her follow up with Dr. Evans in the office next week. Please call me with questions or concerns. MD LISA Simental/SILVIA /6:17 PM /7:53 AM
--- NOTE | 2016-10-10 08:43 | EKG ---
Date Performed: 10/09/2016 Time Performed: 10:06:48 PTAGE: 86 years EKG: Sinus rhythm WITH FIRST DEGREE AV BLOCK ABNORMAL ECG PREVIOUS TRACING : 09/28/2016 12.47 No significant change from previous tracing noted. DOCTOR: James Daniels Interpretating Date/Time 10/10/2016 08:41:29
[2016-10-10] MEDS ORDERED: NON-FORMULARY DRUG (Alpha Lipoic Acid 200 MG) PO SCH (09:00)
[2016-10-10] MEDS ORDERED: CLOPIDOGREL 75 MG TAB PO SCH (09:00)
[2016-10-10] MEDS ORDERED: ASPIRIN 81 MG CHEW TAB CHEW SCH (09:00)
[2016-10-10 09:14] LABS: HDL CHOLESTEROL 46.1 MG/DL (40.0-60.0)
[2016-10-10] MEDS ORDERED: PILL SPLITTER OTHER PRN (11:15)
[2016-10-10 12:24] LABS: HEMOGLOBIN A1a 0.9 %; HEMOGLOBIN Ao 84.2 %; HEMOGLOBIN LA1C 2.1 %; HEMOGLOBIN P3 4.3 %
--- NOTE | 2016-10-10 12:51 | ECHRPT ---
Indication: CVA/TIA CONCLUSIONS The left ventricular systolic function is normal with an estimated ejection fraction in the range of 60-65% Normal left ventricular size. No regional wall motion abnormalities are present. Mild mitral annular calcification. Uzyjl-me-emig mitral valve regurgitation. Aortic valve sclerosis is present. Mild aortic valve regurgitation. There is mild tricuspid valve regurgitation. The estimated pulmonary arterial pressure is 39 mmHg. Trivial pulmonary valve regurgitation. BP: 137 / 71 HR: 93 Rhythm: Sinus MEASUREMENTS (Male / Female) Normal Values Technical Quality:Fair 2D ECHO LV Diastolic Diameter PLAX 4.4 cm 4.2 - 5.9 / 3.9 - 5.3 cm LV Systolic Diameter PLAX 2.9 cm IVS Diastolic Thickness 1.4 cm 0.6 - 1.0 / 0.6 - 0.9 cm LVPW Diastolic Thickness 1.4 cm 0.6 - 1.0 / 0.6 - 0.9 cm LV Relative Wall Thickness 0.6 RV Internal Dim ED PLAX 2.1 cm LVOT Diameter 2.0 cm LV Ejection Fraction MOD 4C 60.3 % LV Cardiac Index MOD 4C 1404.4 cm/minm LV Ejection Fraction 4C AL 61.5 % LV Cardiac Index 4C AL 1504.2 cm/minm M-MODE Aortic Root Diameter MM 3.3 cm LA Systolic Diameter MM 4.0 cm LA Ao Ratio MM 1.2 AV Cusp Separation MM 1.9 cm DOPPLER AV Peak Velocity 153.0 cm/s AV Peak Gradient 9.4 mmHg AI Peak Velocity 263.0 cm/s AI Peak Gradient 27.7 mmHg AI Pressure Half Time 962.0 ms LVOT Peak Velocity 104.0 cm/s LVOT Peak Gradient 4.3 mmHg AV Area Cont Eq pk 2.1 cm MV Area PHT 4.4 cm Mitral E Point Velocity 95.3 cm/s Mitral A Point Velocity 104.0 cm/s Mitral E to A Ratio 0.9 LV E' Lateral Velocity 7.2 cm/s Mitral E to LV E' Lateral Ratio 13.2 LV E' Septal Velocity 5.8 cm/s Mitral E to LV E' Septal Ratio 16.6 TR Peak Velocity 271.0 cm/s TR Peak Gradient 29.4 mmHg PV Peak Velocity 106.0 cm/s PV Peak Gradient 4.5 mmHg FINDINGS LEFT VENTRICLE The left ventricular systolic function is normal with an estimated ejection fraction in the range of 60-65% mild concentric left ventricular hypertrophy. Normal left ventricular size. No regional wall motion abnormalities are present. RIGHT VENTRICLE Normal right ventricular size and systolic function. LEFT ATRIUM The left atrial size is normal. RIGHT ATRIUM The right atrial size is normal. ATRIAL SEPTUM Normal atrial septal thickness without atrial level shunting by limited color doppler interrogation. AORTA The aortic root and proximal ascending aorta are normal in size on limited imaging. MITRAL VALVE Mild mitral annular calcification. Dlmjf-zh-shhy mitral valve regurgitation. AORTIC VALVE Aortic valve sclerosis is present. Mild aortic valve regurgitation. TRICUSPID VALVE There is mild tricuspid valve regurgitation. The estimated pulmonary arterial pressure is 39 mmHg. PULMONARY VALVE Trivial pulmonary valve regurgitation. VESSELS The inferior vena cava is normal in size. PERICARDIUM No pericardial effusion. Akin Polanco MD, FACC (Electronically Signed) Final Date:10 October 2016 12:49
--- NOTE | 2016-10-10 16:10 | RADRPT ---
EXAM DATE/TIME: 10/10/2016 14:39 [facility] COMPARISON: CT BRAIN W/O CONTRAST, October 09, 2016, 15:53. INDICATIONS : CVA. MEDICAL HISTORY : Diabetes mellitus type 2. SURGICAL HISTORY : Total knee replacement, right. Thyroidectomy. Cataract. ENCOUNTER: Initial ACUITY: 1 day PAIN SCORE: 0/10 LOCATION: Head. TECHNIQUE: Multiplanar, multisequence MRI of the brain was performed without contrast. FINDINGS: There is no evidence for intracranial hemorrhage, mass effect, mass lesions, edema, or extra-axial fl uid collections. There are no signs of acute infarction for technique. The diffusion portion is unre markable. Slight degree of brain atrophy is seen. Slight periventricular white matter changes are see n nonspecific mostly consistent with chronic small vessel ischemic changes. CONCLUSION: Chronic atrophic and small vessel ischemic changes without any evidence for acute hem orrhage or mass effect. Mukul Chou MD on October 10, 2016 at 16:06 Board Certified Radiologist. This report was verified electronically.
--- NOTE | 2016-10-10 16:13 | RADRPT ---
EXAM DATE/TIME: 10/10/2016 14:39 [facility] COMPARISON: MRI BRAIN W/O CONTRAST, October 10, 2016, 14:39. US CAROTID ARTERIES, October 09, 2016, 16:32. CT BRA IN W/O CONTRAST, October 09, 2016, 15:53. INDICATIONS : CVA. MEDICAL HISTORY : Diabetes mellitus type 2. SURGICAL HISTORY : Thyroidectomy. Total knee replacement, right. Cataracts. ENCOUNTER: Initial ACUITY: 1 day PAIN SCORE: 0/10 LOCATION: Head. Please note a normal MRA of the brain does not entirely exclude the possibility of a small aneurysm, nor the possibility of distal intracranial vessel disease. TECHNIQUE: 3D time of flight MRA was performed. Source images, multiplanar STS MIP, and 3D volume MIP reconstru ctions were reviewed. FINDINGS: There is an approximate 3-4 mm aneurysm coming off the dorsal aspect of the supraclinoid internal car otid artery on the left side. There is moderate to severe narrowing of the left M1 branch due to athe rosclerotic changes. There is less atherosclerotic disease involving multiple other branches bilatera lly. 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 This report was verified electronically.
--- NOTE | 2016-10-10 16:19 | HHI.PR ---
Subjective Remarks slept ok last night, left hip pain relieved by lortab, no further episodes of chest pain. Objective Vitals Vital Signs Date Time Temp Pulse Resp B/P (MAP) Pulse Ox O2 Delivery O2 Flow Rate FiO2 10/10/16 12:00 96.2 65 19 121/55 (77) 100 10/10/16 09:15 137/67 (90) 10/10/16 08:00 95.6 104 18 170/67 (101) 93 10/10/16 04:00 97.5 60 16 137/71 (93) 96 10/10/16 00:00 97.5 82 16 159/60 (93) 97 10/09/16 23:00 70 10/09/16 20:00 97.5 68 16 142/61 (88) 97 10/10/16 10/10/16 10/11/16 15:00 23:00 07:00 Intake Total 240 ml Balance 240 ml Intake Oral 240 ml Result Diagram: 10/09/16 1045 10/09/16 1045 Imaging Last Impressions Chest X-Ray 10/09/16 1034 Signed Impressions: Service Date/Time: Sunday, October 09, 2016 10:53 - CONCLUSION: No acute disease. Ravi Castro MD Head CT 10/09/16 0000 Signed Impressions: Service Date/Time: Sunday, October 09, 2016 15:53 - CONCLUSION: 1. Normal appearance of the brain. 2. Carotid and vertebral artery calcifications. Ravi Castro MD Carotid Artery Ultrasound 10/09/16 0000 Signed Impressions: Service Date/Time: Sunday, October 09, 2016 16:32 - CONCLUSION: 1. No evidence for hemodynamically significant stenosis. 2. Antegrade flow in the bilateral vertebral arteries. Ravi Castro MD Objective Remarks Sitting at bedside NAD lungs cta, Heart rrr no murmurs nonfocal, speech is fluent A/P Problem List: (1) TIA (transient ischemic attack) ICD Codes: G45.9 - Transient cerebral ischemic attack, unspecified Status: Acute Plan: no further episodes of speech difficulty or weakness, 3rd episode since 2013 2nd in 2 weeks await mri/mra will place on plavix discussed possibility of event monitor (2) Chest pain ICD Codes: R07.9 - Chest pain, unspecified Status: Acute Plan: treponons have been negative given risk factors (hyperlipidemia,htn, diabetes) have ordered lexiscan (3) Hyperlipidemia ICD Codes: E78.5 - Hyperlipidemia, unspecified Status: Chronic Plan: continue lovastatin as outpatient (4) Hypertension ICD Codes: I10 - Essential (primary) hypertension Plan: blood pressure has done well on atenolol, cont to monitor (5) Type 2 diabetes mellitus ICD Codes: E11.9 - Type 2 diabetes mellitus without complications Status: Chronic Plan: diet controlled, stable Problem Qualifiers (1) TIA (transient ischemic attack): Qualified Codes: G45.8 - Other transient cerebral ischemic attacks and related syndromes (2) Chest pain: Qualified Codes: R07.2 - Precordial pain (3) Hypertension: Qualified Codes: I10 - Essential (primary) hypertension Sridevi Ambriz MD Oct 10, 2016 16:19
--- NOTE | 2016-10-10 17:25 | MG ---
cc: ANTONIO MCKEON MD Lab No: Date: 10/10/2016 Age: Sex: F Race: DATE OF [address] Evans. PAST MEDICAL HISTORY: Parkinson's disease, multiple TIAs, hypertension, arthritis, diabetes, intermittent episodes of speech difficulty, right-sided weakness. MEDICATIONS Vitamin D3 Pravachol Theragran Aggrenox [place]. Sinemet. Lovenox DESCRIPTION: The background activity is 5-6 hertz, theta,, bilateral and symmetrical. During the recording there was a transitioning to stage II sleep. Hyperventilation was not done. Photic stimulation did not elicit driving response. There were no electrographic seizures or epileptiform discharges noted during the recording. INTERPRETATION This is an awake and sleep EEG.The background slowing may be related to mild encephalopathy. No ictal activity or epileptiform discharges are noted. Clinical correlation is recommended. Antonio Mckeon MD [facility]/ /4:58 PM /5:05 PM KANDACE
[2016-10-10] MEDS: ENOXAPARIN SODIUM 30 MG/0.3 ML SYRINGE SQ SCH (17:33)
[2016-10-11] VITALS: BP 130/65; PULSE 64; RESP 20; TEMP 96.3; O2SAT 99
[2016-10-11 08:13] VITALS: BP 138/68; PULSE 83; RESP 19; TEMP 96.8; O2SAT 96
[2016-10-11] MEDS: PRAVASTATIN SOD 40 MG TAB PO SCH (08:20)
[2016-10-11] MEDS: SODIUM CHLORIDE 0.9% FLUSH 5 ML FLUSH IV FLUSH SCH (08:20)
[2016-10-11] MEDS: CHOLECALCIFEROL (VIT D3) 1000 UNIT TAB PO SCH (08:20)
[2016-10-11] MEDS: MULTIVITAMIN TAB PO SCH (08:20)
[2016-10-11] MEDS: CARBIDOPA/LEVODOPA 25 MG/100 MG TAB PO SCH ×2 (08:20→11:55)
[2016-10-11] MEDS ORDERED: ATENOLOL 50 MG TAB PO SCH (09:00)
[2016-10-11] MEDS ORDERED: CLOPIDOGREL 75 MG TAB PO SCH ×2 (09:00)
--- NOTE | 2016-10-11 10:28 | RADRPT ---
EXAM DATE/TIME: 10/11/2016 08:46 [facility] COMPARISON: No previous studies available for comparison. INDICATIONS : Retrosternal chest pain. Angina. DOSE: 31.2 mCi Tc99m Myoview at stress. 10.3 mCi Tc99m Myoview at rest. 0.4 mg Lexiscan STRESS SYMPTOMS: Chest pain, nausea and dyspnea. EJECTION FRACTION: 63% MEDICAL HISTORY : Diabetes mellitus type 2. Parkinsons. Hypercholesterolemia. Hypertension. SURGICAL HISTORY : Total knee replacement, right. ENCOUNTER: Initial ACUITY: 1 day PAIN SCALE: 3/10 LOCATION: Retrosternal chest TECHNIQUE: The patient underwent pharmacologic stress with infusion of prescribed dose. Continuous ECG tracing was monitored during stress. Gated SPECT imaging was performed after stress and conventional SPECT i maging was performed at rest. The examination was performed on a SPECT/CT scanner, both attenuation and non-corrected datasets were reviewed. FINDINGS: DISTRIBUTION: The maximum perfused segment at stress is in the anterolateral wall. PERFUSION STUDY: The pattern of perfusion at stress is within normal limits. GATED STUDY: There is intact wall motion and thickening without hypokinetic or dyskinetic segments. CONCLUSION: 1. Normal left ventricle perfusion without fixed or reversible perfusion defect identified. 2. Normal left ventricle wall motion with calculated ejection fraction of 63%. RISK CATEGORY: Low (<1% Annual Mortality Rate) Lalit Enamorado MD on October 11, 2016 at 10:23 Board Certified Radiologist. This report was verified electronically.
[2016-10-11] MEDS ORDERED: PLAV75TA29 PO (11:34)
[2016-10-11] MEDS ORDERED: REGADENOSON INJ 0.4 MG/5 ML SYR IV ONE (12:26)
--- NOTE | 2016-10-11 12:48 | HHI.PR ---
Subjective Remarks no complaints, no chest pain, no speech difficulties Objective Vitals Vital Signs Date Time Temp Pulse Resp B/P (MAP) Pulse Ox O2 Delivery O2 Flow Rate FiO2 10/11/16 08:13 96.8 83 19 138/68 (91) 96 10/11/16 00:00 96.3 64 20 130/65 (86) 99 10/10/16 23:00 69 10/10/16 20:00 95.8 69 18 115/52 (73) 95 10/10/16 16:00 96.7 84 18 155/66 (95) 94 Result Diagram: 10/09/16 1045 10/09/16 1045 Imaging Last Impressions Myocardial Perfusion Scan Nuc Med 10/11/16 0000 Signed Impressions: Service Date/Time: Tuesday, October 11, 2016 08:46 - CONCLUSION: 1. Normal left ventricle perfusion without fixed or reversible perfusion defect identified. 2. Normal left ventricle wall motion with calculated ejection fraction of 63%%. 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 Mukul Chou MD Chest X-Ray 10/09/16 1034 Signed Impressions: Service Date/Time: Sunday, October 09, 2016 10:53 - CONCLUSION: No acute disease. Ravi Castro MD Head CT 10/09/16 0000 Signed Impressions: Service Date/Time: Sunday, October 09, 2016 15:53 - CONCLUSION: 1. Normal appearance of the brain. 2. Carotid and vertebral artery calcifications. Ravi Castro MD Carotid Artery Ultrasound 10/09/16 0000 Signed Impressions: Service Date/Time: Sunday, October 09, 2016 16:32 - CONCLUSION: 1. No evidence for hemodynamically significant stenosis. 2. Antegrade flow in the bilateral vertebral arteries. Ravi Castro MD Last Impressions Chest X-Ray 10/09/16 1034 Signed Impressions: Service Date/Time: Sunday, October 09, 2016 10:53 - CONCLUSION: No acute disease. Ravi Castro MD Head CT 10/09/16 0000 Signed Impressions: Service Date/Time: Friday, October 09, 2016 15:53 - CONCLUSION: 1. Normal appearance of the brain. 2. Carotid and vertebral artery calcifications. Ravi Castro MD Carotid Artery Ultrasound 10/09/16 0000 Signed Impressions: Service Date/Time: Friday, October 09, 2016 16:32 - CONCLUSION: 1. No evidence for hemodynamically significant stenosis. 2. Antegrade flow in the bilateral vertebral arteries. Ravi Castro MD Objective Remarks Sitting at bedside, son in room NAD lungs cta, Heart rrr no murmurs nonfocal, speech is fluent A/P Problem List: (1) TIA (transient ischemic attack) ICD Codes: G45.9 - Transient cerebral ischemic attack, unspecified Status: Resolved Plan: no further episodes of speech difficulty or weakness, 3rd episode since 2013 2nd in 2 weeks, son thinks she may have more mri/mra stable from july on plavix now discussed possibility of event monitor vs loop recorder (2) Chest pain ICD Codes: R07.9 - Chest pain, unspecified Status: Resolved Plan: treponons have been negative lexiscan negative cont control of dm.,htn, hyperlipidemia (3) Hyperlipidemia ICD Codes: E78.5 - Hyperlipidemia, unspecified Status: Chronic Plan: continue lovastatin as outpatient (4) Hypertension ICD Codes: I10 - Essential (primary) hypertension Plan: blood pressure has done well on atenolol, cont to monitor (5) Type 2 diabetes mellitus ICD Codes: E11.9 - Type 2 diabetes mellitus without complications Status: Chronic Plan: diet controlled, stable Assessment and Plan dischared on plavix with f/u her neurologist dr carrasco next week and myself on friday Problem Qualifiers (1) TIA (transient ischemic attack): Qualified Codes: G45.8 - Other transient cerebral ischemic attacks and related syndromes (2) Chest pain: Qualified Codes: R07.2 - Precordial pain (3) Hypertension: Qualified Codes: I10 - Essential (primary) hypertension Sridevi Ambriz MD Oct 11, 2016 12:48
--- NOTE | 2016-10-12 19:01 | HM ---
Date Performed: 10/09/2016 Time Performed: 21:31:00 HOOKUP DATE: 10/09/16 09:31:00 PM Wed ANALYSIS START TIME: 10/09/2016 9:36:00 PM ANALYSIS END TIME: 10/10/2016 9:40:00 PM PATIENT AGE: 86 PATIENT HEIGHT PATIENT WEIGHT DRUG LIST PATIENT DIAGNOSIS TEST NARRATIVE: The patient's average heart rate was 68 BPM. No episodes of tachycardia wer e noted. No episodes of bradycardia were noted. No pauses exceeding 2.0 seconds were noted. 30 ventricular ectopics, which represented < 1% of the total beat count, were noted. The highest dulce tricular ectopic frequency occurred from 11:00 PM to 12:00 AM Gayle. During this time 7 VE(s) occurred . Ventricular ectopics were observed as 30 isolated beat(s) only. No couplets or runs were noted. 38 supraventricular ectopics, which represented < 1% of the total beat count, were noted. The hig hest supraventricular ectopic frequency occurred from 07:00 AM to 08:00 AM Gayle. During this time 5 S VE(s) occurred. No episodes of ST depression (defined as -1.0 mm or more) were noted in channel 1 . No episodes of ST depression (defined as -1.0 mm or more) were noted in channel 2. No episodes of ST depression (defined as -1.0 mm or more) were noted in channel 3. NO DIARY ENTRIES WERE MADE IN [facility] PATIENT DIARY. TEST INTERPRETATION: Sinus rhythm INFREQUENT PACS AND PVCS Signed b y : Rodney Sykes
== END 2016-10-11 12:04 | disposition home or self-care (01) ==
LOC: PHED 09:50 → PHEDA 12:25 → INTOOBSV 12:25 → PH3A 13:35
PROVIDERS: ADMIT Legal Medicine; ATTEND Legal Medicine
DX: G45.9 Transient cerebral ischemic attack, unspecified (principal); M54.9 Dorsalgia, unspecified; R07.2 Precordial pain; R06.02 Shortness of breath; R42 Dizziness and giddiness; R11.0 Nausea; R06.00 Dyspnea, unspecified; M25.569 Pain in unspecified knee; I10 Essential (primary) hypertension; E78.5 Hyperlipidemia, unspecified; E78.00 Pure hypercholesterolemia, unspecified; E11.9 Type 2 diabetes mellitus without complications; I44.0 Atrioventricular block, first degree; I66.02 Occlusion and stenosis of left middle cerebral artery; I65.21 Occlusion and stenosis of right carotid artery; I67.2 Cerebral atherosclerosis; R94.31 Abnormal electrocardiogram [ECG] [EKG]; J84.10 Pulmonary fibrosis, unspecified; I72.8 Aneurysm of other specified arteries; I20.9 Angina pectoris, unspecified; G20 Parkinson's disease; M25.552 Pain in left hip; M25.551 Pain in right hip; G89.29 Other chronic pain; M48.06 Spinal stenosis, lumbar region; M17.0 Bilateral primary osteoarthritis of knee; M81.0 Age-related osteoporosis without current pathological fracture; Z79.899 Other long term (current) drug therapy; Z79.82 Long term (current) use of aspirin; Z79.02 Long term (current) use of antithrombotics/antiplatelets; Z96.651 Presence of right artificial knee joint
CPT/HCPCS: 70450; 70544; 70551; 71020; 78452; 80053; 80061; 81001; 82550; 83036; 83735; 84484; 85025; 85610; 85730; 93005; 93017; 93225; 93226; 93306; 93880; 94150; 95819; 96372; 97162; 97166; 99285; A9502; G0378; G8987; G8988; G8989; J1650; J2785

== ENCOUNTER 2016-10-14 05:27 | Emergency (ER) | payer MEDICARE ==
[~2016-10-14] VITALS: Ht 168.9 cm; Wt 102.0 kg
[~2016-10-14 05:27] MED LIST changes: -AGGR20025 PO; +PLAV75TA29 PO
[2016-10-14 05:37] VITALS: BP 155/58; PULSE 68; RESP 18; TEMP 97.4; O2SAT 96
[2016-10-14] MEDS ORDERED: MECLIZINE HCL 25 MG TAB PO ONE (05:45)
--- NOTE | 2016-10-14 06:02 | RADRPT ---
EXAM DATE/TIME: 10/14/2016 05:39 [facility] COMPARISON: CHEST PA & LAT, October 09, 2016, 10:53. INDICATIONS : Short of breath. MEDICAL HISTORY : None. SURGICAL HISTORY : None. ENCOUNTER: Initial ACUITY: 1 day PAIN SCORE: 6/10 LOCATION: Bilateral chest FINDINGS: Portable AP view of the chest demonstrates a normal-sized cardiac silhouette. No effusion, consolidat ion, or pneumothorax is visualized. The bones and soft tissues demonstrate no acute abnormality. Lung s are mildly underinflated. CONCLUSION: No acute cardiopulmonary abnormality is identified. Lalit Enamorado MD on October 14, 2016 at 6:00 Board Certified Radiologist. This report was verified electronically.
--- NOTE | 2016-10-14 06:04 | PD ---
HPI Chief Complaint: Dizziness Time Seen by Provider: 05:31 Travel History International Travel<30 days: No Contact w/Intl Traveler<30days: No Traveled to known affect area: No History of Present Illness HPI 86 years old female complains of dizziness. Patient states that she woke up in the middle the night and was going to bathroom and started having dizziness. Patient denies any headache. Patient denies any visual change. Patient denies any neck pain. Patient denies any chest pain or shortness of breath. Patient denies abdominal pain. Patient denies any focal weakness or numbness of extremity. Patient denies any nausea vomiting. Patient denies any fever chills. Patient denies any dysuria or frequency. Patient has history of TIA and was admitted to [facility] October 09 of discharge October 11 of this year. Patient was discharged home on Plavix and advised to have event monitor versus loop recorder. Patient also has history of hyperlipidemia, hypertension and type 2 diabetes. PFSH Past Medical History Arthritis: Yes (Back) High Cholesterol: Yes Cerebrovascular Accident: Yes (Multiple TIA's) Diabetes: Yes Patient Takes Glucophage: No Diminished Hearing: Yes Hypertension: Yes Musculoskeletal: Yes Neurologic: Yes (Parkinsons) Parkinson's Disease: Yes Tetanus Vaccination: < 5 Years Influenza Vaccination: Yes Menopausal: Yes Past Surgical History Eye Surgery: Yes (Cataract 2016) Other Surgery: Yes (partial thyroidectomy ) Social History Alcohol Use: Yes (1 glass of wine nightly) Tobacco Use: No Substance Use: No Allergies-Medications (Allergen,Severity, Reaction): Coded Allergies: Sulfa (Sulfonamide Antibiotics) (Unverified Allergy, Unknown, 10/14/16) states she doesn't remember Reported Meds & Prescriptions Reported Meds & Active Scripts Active Plavix (Clopidogrel Bisulfate) 75 Mg Tab 75 Mg PO DAILY MDD 75 mg 30 Days Reported Preservision Areds 2 Softgel (Vit C/E/Zn/Coppr/Lutein/Zeaxan) 1 Each Capsule 1 Cap PO BID Alpha Lipoic Acid 200 Mg Cap 200 Mg PO DAILY Vitamin D3 (Cholecalciferol) 1,000 Unit Tab 1,000 Units PO DAILY Multivitamins (Multivitamin) 1 Each Tab.chew 1 Tab PO DAILY Fosamax (Alendronate Sodium) 70 Mg Tab 70 Mg PO Q7D Aspirin Low Dose (Aspirin) 81 Mg Chew 81 Mg CHEW DAILY Atenolol 50 Mg Tab 75 Mg PO HS Lovastatin 40 Mg Tab 40 Mg PO DAILY Carbidopa-Levodopa 25-100 Mg Tab 1 Tab PO QID Review of Systems General / Constitutional: No: Fever Eyes: No: Visual changes HENT: Positive: Lightheadedness, No: Headaches Cardiovascular: No: Chest Pain or Discomfort Respiratory: No: Shortness of Breath Gastrointestinal: No: Abdominal Pain Genitourinary: No: Dysuria Musculoskeletal: No: Pain Skin: No Rash Neurologic: No: Weakness Psychiatric: No: Depression Endocrine: No: Polydipsia Hematologic/Lymphatic: No: Easy Bruising Physical Exam Narrative GENERAL: Well-nourished, well-developed patient. SKIN: Focused skin assessment warm/dry. HEAD: Normocephalic. EYES: No scleral icterus. No injection or drainage. NECK: Supple, trachea midline. No JVD or lymphadenopathy. CARDIOVASCULAR: Regular rate and rhythm without murmurs, gallops, or rubs. RESPIRATORY: Breath sounds equal bilaterally. No accessory muscle use. GASTROINTESTINAL: Abdomen soft, non-tender, nondistended. MUSCULOSKELETAL: No cyanosis, or edema. BACK: Nontender without obvious deformity. No CVA tenderness. Neurologic exam: Patient's awake and alert oriented 3. No obvious focal neurological deficit. Data Data Last Documented VS Vital Signs Date Time Temp Pulse Resp B/P (MAP) Pulse Ox O2 Delivery O2 Flow Rate FiO2 10/14/16 06:29 20 10/14/16 06:21 61 168/75 (106) 98 10/14/16 05:37 97.4 Orders Orders Electrocardiogram (10/14/16 05:33) Complete Blood Count With Diff (10/14/16 05:33) Comprehensive Metabolic Panel (10/14/16 05:33) Prothrombin Time / Inr (Pt) (10/14/16 05:33) Act Partial Throm Time (Ptt) (10/14/16 05:33) Urinalysis - C+S If Indicated (10/14/16 05:33) Chest, Single Ap (10/14/16 05:33) Ct Brain W/O Iv Contrast(Rout) (10/14/16 05:33) Iv Access Insert/Monitor (10/14/16 05:33) Ecg Monitoring (10/14/16 05:33) Oximetry (10/14/16 05:33) Meclizine (Antivert) (10/14/16 05:45) Urine Culture (10/14/16 06:55) Labs Laboratory Tests Test 10/14/16 06:00 10/14/16 06:55 White Blood Count 5.6 TH/MM3 Red Blood Count 4.13 MIL/MM3 Hemoglobin 12.5 GM/DL Hematocrit 37.9 % Mean Corpuscular Volume 91.8 FL Mean Corpuscular Hemoglobin 30.4 PG Mean Corpuscular Hemoglobin Concent 33.1 % Red Cell Distribution Width 12.8 % Platelet Count 213 TH/MM3 Mean Platelet Volume 8.2 FL Neutrophils (%) (Auto) 61.7 % Lymphocytes (%) (Auto) 25.7 % Monocytes (%) (Auto) 8.2 % Eosinophils (%) (Auto) 3.3 % Basophils (%) (Auto) 1.1 % Neutrophils # (Auto) 3.4 TH/MM3 Lymphocytes # (Auto) 1.4 TH/MM3 Monocytes # (Auto) 0.5 TH/MM3 Eosinophils # (Auto) 0.2 TH/MM3 Basophils # (Auto) 0.1 TH/MM3 CBC Comment DIFF FINAL Differential Comment Prothrombin Time 10.6 SEC Prothromb Time International Ratio 1.0 RATIO Activated Partial Thromboplast Time 21.2 SEC Blood Urea Nitrogen 24 MG/DL Creatinine 0.92 MG/DL Random Glucose 130 MG/DL Total Protein 6.6 GM/DL Albumin 3.4 GM/DL Calcium Level 8.4 MG/DL Alkaline Phosphatase 72 U/L Aspartate Amino Transf (AST/SGOT) 13 U/L Alanine Aminotransferase (ALT/SGPT) 12 U/L Total Bilirubin 0.3 MG/DL Sodium Level 139 MEQ/L Potassium Level 4.4 MEQ/L Chloride Level 107 MEQ/L Carbon Dioxide Level 23.8 MEQ/L Anion Gap 8 MEQ/L Estimat Glomerular Filtration Rate 58 ML/MIN Urine Collection Type VOIDED Urine Color STRAW Urine Turbidity CLEAR Urine pH 6.0 Urine Specific [place] 1.007 Urine Protein NEG mg/dL Urine Glucose (UA) NEG mg/dL Urine Ketones NEG mg/dL Urine Occult Blood NEG Urine Nitrite NEG Urine Bilirubin NEG Urine Leukocyte Esterase SMALL Urine WBC 6-8 /hpf Urine WBC Clumps OCC Urine Squamous Epithelial Cells 0-3 /hpf Urine Transitional Epithelial Cells 0-2 /hpf Urine Bacteria OCC /hpf Microscopic Urinalysis Comment CULTURE INDICATED MDM Medical Decision Making Medical Screen Exam Complete: Yes Emergency Medical Condition: Yes Interpretation(s) Last Impressions Head CT 10/14/16532 Signed Impressions: Service Date/Time: Friday, October 14, 2016 06:08 - CONCLUSION: Stable noncontrast head CT. No acute intracranial abnormality is identified. Lalit Enamorado MD Chest X-Ray 10/14/1633 Signed Impressions: Service Date/Time: Friday, October 14, 2016 05:39 - CONCLUSION: No acute cardiopulmonary abnormality is identified. Lalit Enamorado MD 6:42 AM. CBC within normal limit. BUN 24. Glucose 130. 7:27 AM. UA positive for WBC and bacteria. Differential Diagnosis Differential diagnosis including vertigo, electrolyte abnormality, dehydration, arrhythmia, TIA, CVA Narrative Course 86 years old female with dizziness. History of TIA. Meclizine 25 mg by mouth given. Cipro 500 mg by mouth given now. Diagnosis Primary Impression: UTI (urinary tract infection) Qualified Codes: N30.00 - Acute cystitis without hematuria Additional Impression: Acute onset of severe vertigo Patient Instructions: General Instructions Additional Instructions: Antivert and Keflex as directed. Follow-up with personal physician. Return if worse. Med/Other Pt SpecificInfo: Prescription(s) given Scripts Ciprofloxacin (Cipro) 500 Mg Tab 500 MG PO BID for Infection, #14 TAB 0 Refills Prov: Maximilian Trejo MD 10/14/16 Meclizine (Meclizine) 25 Mg Tab 25 MG PO TID Y for VERTIGO, #21 TAB 0 Refills Prov: Maximilian Trejo MD 10/14/16 Disposition: 01 DISCHARGE HOME Condition: Stable Maximilian Trejo MD Oct 14, 2016 06:04
[2016-10-14 06:10] LABS: AUTOMATED NEUTROPHIL # 3.4 TH/MM3 (1.8-7.7); BASOPHIL # 0.1 TH/MM3 (0-0.2); BASOPHIL % 1.1 % (0.0-2.0); EOSINOPHIL # 0.2 TH/MM3 (0-0.4); EOSINOPHIL % 3.3 % (0.0-4.0); HEMATOCRIT 37.9 % (35.0-46.0); HEMO FLAGS DIFF FINAL; LYMPH % 25.7 % (9.0-44.0); LYMPHOCYTE # 1.4 TH/MM3 (1.0-4.8); MEAN CELL VOLUME 91.8 FL (80.0-100.0); MEAN CORPUSCULAR HEMOGLOBIN 30.4 PG (27.0-34.0); MEAN CORPUSCULAR HGB CONC 33.1 % (32.0-36.0); MONO % 8.2 % (0.0-8.0); NEUT % 61.7 % (16.0-70.0); PLATELET COUNT 213 TH/MM3 (150-450); RED BLOOD COUNT 4.13 MIL/MM3 (4.00-5.30); RED CELL DISTRIBUTION WIDTH 12.8 % (11.6-17.2); WHITE BLOOD COUNT 5.6 TH/MM3 (4.0-11.0)
[2016-10-14 06:21] VITALS: BP 168/75; PULSE 59; PULSE 61; RESP 20; O2SAT 98
[2016-10-14 06:21] LABS: CHLORIDE 107 MEQ/L (98-107); POTASSIUM 4.4 MEQ/L (3.5-5.1); SODIUM (NA) 139 MEQ/L (136-145)
--- NOTE | 2016-10-14 06:21 | RADRPT ---
EXAM DATE/TIME: 10/14/2016 06:08 [facility] COMPARISON: CT BRAIN W/O CONTRAST, October 09, 2016, 15:53. INDICATIONS : Dizziness. RADIATION DOSE: 59.46 CTDIvol (mGy) MEDICAL HISTORY : Diabetes mellitus type 2. Parkinsons. Cerebrovascular disease.Hypertension. SURGICAL HISTORY : None. ENCOUNTER: Initial ACUITY: 1 day PAIN SCALE: 0/10 LOCATION: cranial TECHNIQUE: Multiple contiguous axial images were obtained of the head. Using automated exposure control and adj ustment of the mA and/or kV according to patient size, radiation dose was kept as low as reasonably a chievable to obtain optimal diagnostic quality images. DICOM format image data is available electro nically for review and comparison. FINDINGS: CEREBRUM: There is mild cerebral atrophy. Ventricles are normal. No evidence of midline shift, mass lesion, he morrhage or acute infarction. No extra-axial fluid collections are seen. There is intracranial inter nal carotid artery calcification. POSTERIOR FOSSA: The cerebellum and brainstem demonstrate no acute finding. The 4th ventricle is midline. The cerebe llopontine angle is unremarkable. EXTRACRANIAL: Visualized sinuses are clear. SKULL: The calvaria is intact. No evidence of skull fracture. CONCLUSION: Stable noncontrast head CT. No acute intracranial abnormality is identified. Lalit Enamorado MD on October 14, 2016 at 6:17 Board Certified Radiologist. This report was verified electronically.
[2016-10-14 06:24] LABS: APTT (PATIENT) 21.2 SEC (24.3-30.1); PROTHROMBIN TIME - PATIENT 10.6 SEC (9.8-11.6)
[2016-10-14 06:25] LABS: ANION GAP 8 MEQ/L (5-15); BICARBONATE 23.8 MEQ/L (21.0-32.0); BLOOD UREA NITROGEN 24 MG/DL (7-18)
[2016-10-14 06:28] LABS: ALT (GPT) 12 U/L (10-53); AST (GOT) 13 U/L (15-37); GLOMERULAR FILTRATION RATE 58 ML/MIN (>89)
[2016-10-14 06:29] LABS: TOTAL BILIRUBIN ADULT 0.3 MG/DL (0.2-1.0)
[2016-10-14 06:30] LABS: ALKALINE PHOSPHATASE 72 U/L (45-117)
[2016-10-14 07:11] LABS: BLOOD, URINE NEG (NEG); GLUCOSE,URINE NEG (NEG); KETONE, URINE NEG (NEG); NITRITE,URINE NEG (NEG)
[2016-10-14 07:21] LABS: METHOD OF COLLECTION VOIDED; URINE COLOR STRAW (YELLW/STRAW)
[2016-10-14 07:22] LABS: BACTERIA, URINE OCC /hpf; COMMENT (UR) CULTURE INDICATED; CULTURE IF INDICATED CULTURE INDICATED; SQUAMOUS EPITHELIAL CELL URINE 0-3 /hpf (0-5); TRANSITIONAL EPI CELLS, URINE 0-2 /hpf
[2016-10-14] MEDS ORDERED: MECL-62 PO (07:30)
[2016-10-14] MEDS ORDERED: CIPROFLOXACIN 500 MG TAB PO ONE (07:30)
[2016-10-14] MEDS ORDERED: CIPR-9 PO (07:30)
[2016-10-14 08:03] VITALS: BP 161/74
--- NOTE | 2016-10-14 15:13 | EKG ---
Date Performed: 10/14/2016 Time Performed: 05:57:16 PTAGE: 86 years EKG: SINUS BRADYCARDIA WITH FIRST DEGREE AV BLOCK ABNORMAL ECG PREVIOUS TRACING : 10/09/2016 10.06 Since previous tracing, no significant change noted DOCTOR: Alex Bird Interpretating Date/Time 10/14/2016 15:11:06
== END 2016-10-14 07:30 | disposition home or self-care (01) ==
LOC: PHED 05:27
DX: N30.00 Acute cystitis without hematuria (principal); B96.89 Other specified bacterial agents as the cause of diseases classified elsewhere; R42 Dizziness and giddiness; G20 Parkinson's disease; E11.9 Type 2 diabetes mellitus without complications; I10 Essential (primary) hypertension; E78.5 Hyperlipidemia, unspecified; R00.1 Bradycardia, unspecified; R94.31 Abnormal electrocardiogram [ECG] [EKG]; Z79.02 Long term (current) use of antithrombotics/antiplatelets; Z79.899 Other long term (current) drug therapy; Z86.73 Personal history of transient ischemic attack (TIA), and cerebral infarction without residual deficits
CPT/HCPCS: 70450; 71010; 80053; 81001; 85025; 85610; 85730; 87086; 93005; 99285

== ENCOUNTER 2017-03-14 10:53 | Day surgery (SDC) | payer MEDICARE ==
[~2017-03-14 10:53] MED LIST changes: -ASPI81CH37 CHEW; +ASPI81CH6 CHEW; +CIPR-9 PO; +MECL-62 PO
[2017-03-14] MEDS ORDERED: ceFAZolin 2 GM PREMIX 50 ML IV SCH (11:45)
[2017-03-14] MEDS ORDERED: LISI-519 PO (11:48)
[2017-03-14] MEDS ORDERED: MULTTAB67 PO (11:48)
--- NOTE | 2017-03-14 17:28 | MA ---
cc: SRI BAPTISTE MD, BETH A. MD DATE: 03/14/2017 PROCEDURE PERFORMED Recorder insertion. DESCRIPTION OF PROCEDURE The patient was brought to the DOC unit in the postabsorptive state after informed consent was obtained a Pzoom reveal link loop recorder was inserted subcutaneously to left chest. The patient tolerated the procedure well without any apparent complications. Tachybrady pause and atrial fibrillation detection was enabled. Initial R-wave was 0.28 mV. The serial number was [id number]. MD CHRISTIAN Stone/patricia /1:25 PM /5:04 PM
== END 2017-03-14 14:25 | disposition home or self-care (01) ==
LOC: HDOC 10:53 → HDIC 10:53 → HDOC 14:25
PROVIDERS: ATTEND Nuclear Medicine Nuclear Cardiology
DX: G45.9 Transient cerebral ischemic attack, unspecified (principal); G45.0 Vertebro-basilar artery syndrome; I12.9 Hypertensive chronic kidney disease with stage 1 through stage 4 chronic kidney disease, or unspecified chronic kidney disease; E11.22 Type 2 diabetes mellitus with diabetic chronic kidney disease; N18.3 Chronic kidney disease, stage 3 (moderate); E78.5 Hyperlipidemia, unspecified; R06.00 Dyspnea, unspecified; R53.83 Other fatigue; I70.0 Atherosclerosis of aorta; R47.01 Aphasia; E04.9 Nontoxic goiter, unspecified; G20 Parkinson's disease; I27.20 Pulmonary hypertension, unspecified; R35.0 Frequency of micturition; I83.90 Asymptomatic varicose veins of unspecified lower extremity
CPT/HCPCS: 33282; C1764; J0690

== ENCOUNTER 2017-04-10 15:42 | Observation (INO) | payer MEDICARE ==
[~2017-04-10] VITALS: Ht 167.6 cm; Wt 109.8 kg
[~2017-04-10 15:42] MED LIST changes: -CIPR-9 PO; +LISI-519 PO; -MECL-62 PO; -MULT-159 PO; +MULTTAB67 PO
[2017-04-10 15:46] VITALS: BP 162/72; PULSE 80; RESP 16; TEMP 97.6; O2SAT 98
[2017-04-10] MEDS ORDERED: SODIUM CHLOR 0.9% 1000 ML INJ 1,000 ML IV SCH (16:02)
[2017-04-10 16:13] VITALS: RESP 16; O2SAT 99
[2017-04-10] MEDS ORDERED: ONDANSETRON HCL 4 MG/2 ML VIAL IVP ONE (16:15)
[2017-04-10] MEDS ORDERED: SODIUM CHLORIDE 0.9% FLUSH 10 ML FLUSH IVF PRN (16:15)
[2017-04-10] MEDS ORDERED: PANTOPRAZOLE SODIUM 40 MG VIAL IVP ONE (16:15)
--- NOTE | 2017-04-10 16:17 | PD ---
HPI Chief Complaint: General Weakness Time Seen by Provider: 15:52 Travel History International Travel<30 days: No Contact w/Intl Traveler<30days: No Traveled to known affect area: No History of Present Illness HPI Patient has a loop recorder from Dr. Davila, due to multiple syncopal episodes. Dr. Bryan Jackson saw the patient today as a routine follow-up, noted that the patient gave history of another syncopal episode. During the examination Dr. Adams noted that she was grossly positive guaiac. And patient has been complaining of feeling lightheaded and dizzy. Patient is sent over to [facility] ER for admission, GI evaluation, for GI bleed with syncope. According to labs per Dr. Adams her last hemoglobin was 12. Per patient she believes that the symptoms of changing stool color to a darker black tarry color started today Allergies to sulfa Past medical and past surgical history is significant for multiple TIAs, Parkinson's disease, hypercholesterolemia, hypertension, diabetes, loop monitor , partial thyroidectomy, right knee replacement. PFSH Past Medical History Arthritis: Yes (Back) High Cholesterol: Yes Cerebrovascular Accident: Yes (Multiple TIA's) Diabetes: Yes Patient Takes Glucophage: No (DIET CONTROLLED) Diminished Hearing: Yes Hypertension: Yes Musculoskeletal: Yes Neurologic: Yes (Parkinsons) Parkinson's Disease: Yes Tetanus Vaccination: < 5 Years Influenza Vaccination: Yes Menopausal: Yes Past Surgical History Eye Surgery: Yes (Cataract 2016) Other Surgery: Yes (partial thyroidectomy, LOOP MONITOR IN PLACE) Social History Alcohol Use: Yes (1 glass of wine nightly) Tobacco Use: No Substance Use: No Allergies-Medications (Allergen,Severity, Reaction): Coded Allergies: Sulfa (Sulfonamide Antibiotics) (Unverified Allergy, Unknown, 04/10/17) states she doesn't remember duloxetine (Verified Allergy, Unknown, 04/10/17) Reported Meds & Prescriptions Reported Meds & Active Scripts Active Fluconazole 150 Mg Tab 150 Mg PO ONCE Doxycycline Hyclate DR (Doxycycline Hyclate) 100 Mg Tab 100 Mg PO BID 7 Days Plavix (Clopidogrel Bisulfate) 75 Mg Tab 75 Mg PO DAILY MDD 75 mg 30 Days Reported Multiple Vitamin 1 Tab 1 Tab PO DAILY Lisinopril 5 Mg Tab 5 Mg PO DAILY Preservision Areds 2 Softgel (Vit C/E/Zn/Coppr/Lutein/Zeaxan) 1 Each Capsule 1 Cap PO BID Alpha Lipoic Acid 200 Mg Cap 200 Mg PO DAILY Vitamin D3 (Cholecalciferol) 1,000 Unit Tab 1,000 Units PO DAILY Fosamax (Alendronate Sodium) 70 Mg Tab 70 Mg PO Q7D Aspirin Low Dose (Aspirin) 81 Mg Chew 81 Mg CHEW DAILY Atenolol 50 Mg Tab 75 Mg PO HS Lovastatin 40 Mg Tab 40 Mg PO DAILY Carbidopa-Levodopa 25-100 Mg Tab 1.5 Tab PO QID Review of Systems General / Constitutional: No: Fever Eyes: No: Visual changes HENT: Positive: Lightheadedness Cardiovascular: No: Chest Pain or Discomfort Respiratory: No: Shortness of Breath Gastrointestinal: Positive: Other (Guaiac-positive), No: Abdominal Pain Genitourinary: No: Dysuria Musculoskeletal: No: Pain Skin: No Rash Neurologic: No: Weakness Psychiatric: No: Depression Endocrine: No: Polydipsia Hematologic/Lymphatic: No: Easy Bruising Physical Exam Narrative GENERAL: SKIN: Warm and dry....PATIENT HAS MARGINATED RAISED BORDERS ON DORSUM OF LEFT FOOT C/W TINEA CORPORIS, ON RLE ERYTHEMA TO ANTERIOR [place] AREA ALSO MARGINATED RAISED BORDERS OVER LARGER AREA C/W TINEA CORPORIS HEAD: Atraumatic. Normocephalic. EYES: Pupils equal and round. No scleral icterus. No injection or drainage. ENT: No nasal bleeding or discharge. Mucous membranes pink and moist. NECK: Trachea midline. No JVD. CARDIOVASCULAR: Regular rate and rhythm. RESPIRATORY: No accessory muscle use. Clear to auscultation. Breath sounds equal bilaterally. GASTROINTESTINAL: Abdomen soft, non-tender, nondistended. MUSCULOSKELETAL: Extremities without clubbing, cyanosis, or edema. No obvious deformities. NEUROLOGICAL: Awake and alert. No obvious cranial nerve deficits. Motor grossly within normal limits. Five out of 5 muscle strength in the arms and legs. Normal speech. PSYCHIATRIC: Appropriate mood and affect; insight and judgment normal. Data Data Last Documented VS Vital Signs Date Time Temp Pulse Resp B/P (MAP) Pulse Ox O2 Delivery O2 Flow Rate FiO2 04/10/17 17:37 81 16 180/75 (110) 95 Room Air 04/10/17 15:46 97.6 Orders Orders Complete Blood Count With Diff (04/10/17 16:02) Comprehensive Metabolic Panel (04/10/17 16:02) Lipase (04/10/17 16:02) Prothrombin Time / Inr (Pt) (04/10/17 16:02) Act Partial Throm Time (Ptt) (04/10/17 16:02) Urinalysis - C+S If Indicated (04/10/17 16:02) Type And Screen (04/10/17 16:02) Ecg Monitoring (04/10/17 16:02) Iv Access Insert/Monitor (04/10/17 16:02) Oximetry (04/10/17 16:02) Ondansetron Inj (Zofran Inj) (04/10/17 16:15) Pantoprazole Inj (Protonix Inj) (04/10/17 16:15) Sodium Chlor 0.9% 1000 Ml Inj (Ns 1000 M (04/10/17 16:02) Sodium Chloride 0.9% Flush (Ns Flush) (04/10/17 16:15) Admit Order (Ed Use Only) (04/10/17 18:40) Labs Laboratory Tests Test 04/10/17 16:30 White Blood Count 7.8 TH/MM3 Red Blood Count 3.66 MIL/MM3 Hemoglobin 11.7 GM/DL Hematocrit 33.7 % Mean Corpuscular Volume 91.9 FL Mean Corpuscular Hemoglobin 32.0 PG Mean Corpuscular Hemoglobin Concent 34.8 % Red Cell Distribution Width 14.2 % Platelet Count 248 TH/MM3 Mean Platelet Volume 8.3 FL Neutrophils (%) (Auto) 70.3 % Lymphocytes (%) (Auto) 18.7 % Monocytes (%) (Auto) 9.3 % Eosinophils (%) (Auto) 1.4 % Basophils (%) (Auto) 0.3 % Neutrophils # (Auto) 5.5 TH/MM3 Lymphocytes # (Auto) 1.5 TH/MM3 Monocytes # (Auto) 0.7 TH/MM3 Eosinophils # (Auto) 0.1 TH/MM3 Basophils # (Auto) 0.0 TH/MM3 CBC Comment DIFF FINAL Differential Comment Prothrombin Time 10.0 SEC Prothromb Time International Ratio 1.0 RATIO Activated Partial Thromboplast Time 18.2 SEC Urine Collection Type CLEAN CATCH Urine Color YELLOW Urine Turbidity SLIGHT Urine pH 5.5 Urine Specific [place] 1.010 Urine Protein NEG mg/dL Urine Glucose (UA) NEG mg/dL Urine Ketones TRACE mg/dL Urine Occult Blood NEG Urine Nitrite NEG Urine Bilirubin NEG Urine Leukocyte Esterase TRACE Urine WBC 6-8 /hpf Urine Squamous Epithelial Cells 0-5 /hpf Urine Amorphous Sediment MOD Microscopic Urinalysis Comment CULT NOT INDICATED Urine Collection Time 1630 Blood Urea Nitrogen 31 MG/DL Creatinine 0.99 MG/DL Random Glucose 111 MG/DL Total Protein 7.0 GM/DL Albumin 3.4 GM/DL Calcium Level 9.5 MG/DL Alkaline Phosphatase 61 U/L Aspartate Amino Transf (AST/SGOT) 14 U/L Alanine Aminotransferase (ALT/SGPT) 8 U/L Total Bilirubin 0.5 MG/DL Sodium Level 134 MEQ/L Potassium Level 4.4 MEQ/L Chloride Level 101 MEQ/L Carbon Dioxide Level 27.3 MEQ/L Anion Gap 6 MEQ/L Estimat Glomerular Filtration Rate 53 ML/MIN Lipase 254 U/L [facility] Medical Decision Making Medical Screen Exam Complete: Yes Emergency Medical Condition: Yes Medical Record Reviewed: Yes Differential Diagnosis GI bleed due to internal hemorrhoids versus peptic ulcer disease versus diverticulosis versus bleeding ulcer Narrative Course Patient's vital signs are stable. Urinalysis is negative for any gross UTI. Coagulation profile pending CBC shows no leukocytosis no anemia hemoglobin is 11/33 normal platelet count and no shift. Chemistry shows normal electrolytes normal kidney function normal liver functions are normal lipase Physician Communication Physician Communication D/W DR AYALA WHO RECC OUTPATIENT Diagnosis Primary Impression: GI BLEED HEMODYNAMICALLY STABLE Additional Impression: TINEA CORPORIS Patient Instructions: Cellulitis (ED), General Instructions Scripts Fluconazole (Fluconazole) 150 Mg Tab 150 MG PO ONCE for Infection, #3 TAB 0 Refills Prov: Jeronimo Akers MD 04/10/17 Doxycycline Hyclate (Doxycycline Hyclate DR) 100 Mg Tab 100 MG PO BID for Infection for 7 Days, #14 TAB 0 Refills Prov: Jeronimo Akers MD 04/10/17 Disposition: 01 DISCHARGE HOME Condition: Stable Jeronimo Akers MD Apr 10, 2017 16:17
[2017-04-10 17:00] LABS: AUTOMATED NEUTROPHIL # 5.5 TH/MM3 (1.8-7.7); BASOPHIL % 0.3 % (0.0-2.0); CHLORIDE 101 MEQ/L (98-107); EOSINOPHIL # 0.1 TH/MM3 (0-0.4); EOSINOPHIL % 1.4 % (0.0-4.0); HEMATOCRIT 33.7 % (35.0-46.0); HEMOGLOBIN 11.7 GM/DL (11.6-15.3); LYMPH % 18.7 % (9.0-44.0); LYMPHOCYTE # 1.5 TH/MM3 (1.0-4.8); MEAN CELL VOLUME 91.9 FL (80.0-100.0); MEAN CORPUSCULAR HGB CONC 34.8 % (32.0-36.0); MEAN PLATELET VOLUME 8.3 FL (7.0-11.0); MONO % 9.3 % (0.0-8.0); MONOCYTE # 0.7 TH/MM3 (0-0.9); NEUT % 70.3 % (16.0-70.0); PLATELET COUNT 248 TH/MM3 (150-450); RED BLOOD COUNT 3.66 MIL/MM3 (4.00-5.30); RED CELL DISTRIBUTION WIDTH 14.2 % (11.6-17.2); SODIUM (NA) 134 MEQ/L (136-145); WHITE BLOOD COUNT 7.8 TH/MM3 (4.0-11.0)
[2017-04-10 17:01] LABS: BILIRUBIN, URINE NEG (NEG); BLOOD, URINE NEG (NEG); GLUCOSE,URINE NEG (NEG); KETONE, URINE TRACE mg/dL (NEG); NITRITE,URINE NEG (NEG); PH, URINE 5.5 (5.0-8.5); URINE LEUKOCYTE ESTERASE TRACE (NEG)
[2017-04-10 17:04] LABS: CALCIUM 9.5 MG/DL (8.5-10.1)
[2017-04-10 17:05] LABS: ALBUMIN 3.4 GM/DL (3.4-5.0); BICARBONATE 27.3 MEQ/L (21.0-32.0); BLOOD UREA NITROGEN 31 MG/DL (7-18); GLUCOSE,RANDOM 111 MG/DL (74-106)
[2017-04-10 17:06] LABS: URINE COLOR YELLOW (YELLW/STRAW)
[2017-04-10 17:07] LABS: AMORPHOUS SEDIMENT, URINE MOD; SQUAMOUS EPITHELIAL CELL URINE 0-5 /hpf (0-5)
[2017-04-10 17:08] LABS: ALT (GPT) 8 U/L (10-53); AST (GOT) 14 U/L (15-37); CREATININE 0.99 MG/DL (0.50-1.00); GLOMERULAR FILTRATION RATE 53 ML/MIN (>89)
[2017-04-10 17:09] LABS: TOTAL BILIRUBIN ADULT 0.5 MG/DL (0.2-1.0)
[2017-04-10 17:11] LABS: ALKALINE PHOSPHATASE 61 U/L (45-117)
[2017-04-10 17:37] VITALS: BP 180/75; PULSE 81; RESP 16; O2SAT 95
[2017-04-10] MEDS ORDERED: DOXY1TAB6 PO (18:36)
[2017-04-10] MEDS ORDERED: FLUC150T PO (18:36)
--- NOTE | 2017-04-10 19:20 | HHI.HP ---
HPI Service [facility] Hospitalists Primary Care Physician Sridevi Ambriz MD Admission Diagnosis GI BLEED HD STABLE Chief Complaint: GI bleed, hx recurrent syncope, hypotension in PCP office today. Travel History International Travel<30 Days: No Contact w/Intl Traveler <30 Da: No Traveled to Known Affected Are: No History of Present Illness 86 y.o. WF with DM, HTN, Parkinson's, recurrent syncope thought to be a/w TIAs and chronic dizziness who was sent to ER by her PCP due to increased weakness, heme + stool on office exam and low BP in her PCP office. Patient has a loop recorder from Dr. Davila, due to multiple syncopal episodes. Dr. Bryan Jackson saw the patient today as a routine follow-up, noted that the patient gave history of another syncopal episode appx 2 weeks ago when she was standing getting out of car in her garage. She had similar episode in early Feb 2017. During the examination Dr. Adams noted that she was grossly positive guaiac. And patient has been complaining of feeling lightheaded and dizzy. Her BP was recorded as 96/68 with heart rate of [address] Adams's office today. Patient is sent over to [place] ER for admission, possible GI evaluation, for GI bleed with syncope. Pt's last Hb was 12.3 on 04/02/17. Per patient she believes that the symptoms of changing stool color to a darker black tarry color started today. I actually examined pt in Dr Adams's office before she came over to ER. She looked a bit pale and was c/o lightheadedness which is not a new complaint per her and her caregiver's report. Pt seems most concerned with why she continues to be dizzy intermittently. I explained that Parkinson's can affect body's ability to automatically manage BP and often can lead to dizziness with swings in BP. Pt reportedly has not had a tilt table test. She denies CP or palpitations. Pt takes ASA, Plavix regularly and occasionally uses Aleve for arthritis pain. Review of Systems Constitutional: COMPLAINS OF: Fatigue, DENIES: Diaphoretic episodes, Fever, Weight gain, Weight loss, Chills, Dizziness, Change in appetite, Night Sweats Eyes: DENIES: Blurred vision, Diplopia, Eye inflammation, Eye pain, Vision loss , Photosensitivity, Double Vision Ears, nose, mouth, throat: COMPLAINS OF: Hearing loss, DENIES: Tinnitus, Vertigo, Nasal discharge, Oral lesions, Throat pain, Hoarseness, Ear Pain, Running Nose, Epistaxis, Sinus Pain, Toothache, Odynophagia Respiratory: DENIES: Apneas, Cough, Snoring, Wheezing, Hemoptysis, Sputum production, Shortness of breath Cardiovascular: COMPLAINS OF: Lower Extremity Edema, DENIES: Chest pain, Palpitations, Syncope, Dyspnea on Exertion, PND, Orthopnea, Claudication Gastrointestinal: COMPLAINS OF: Black stools, See HPI, DENIES: Abdominal pain, Bloody stools, BRB per rectum, Constipation, Diarrhea, GERD, Nausea, Reflux, Vomiting, Difficulty Swallowing, Anorexia Musculoskeletal: COMPLAINS OF: Joint pain, Back pain Integumentary: COMPLAINS OF: Rash Hematologic/lymphatic: COMPLAINS OF: Bruising Neurologic: COMPLAINS OF: Abnormal gait, Tremor, Poor Balance Psychiatric: COMPLAINS OF: Anxiety Past Family Social History Past Medical History DM neuropathy, nephropathy, angiopathy Hyperlipidemia HTN (hypotensive earlier today) Hypothyroidism Lumbar DDD Parkinson's dz Purpura Pulm HTN TIAs vit D def Dizziness Past Surgical History Left hand surgery Cataract surgery LESI Colonoscopy - last done 06/2012 with diminutive polyp, o/w neg No EGD on record per outside EMR review Thyroid surgery 1970 T&A TKA on right, 2014 Allergies: Coded Allergies: Sulfa (Sulfonamide Antibiotics) (Unverified Allergy, Unknown, 04/10/17) states she doesn't remember duloxetine (Verified Allergy, Unknown, 04/10/17) Family History nc Social History No tobacco ever 1 glass of wine each night Lives alone, but has caregiver who helps her often Retired teacher Originally from [place] Physical Exam Vital Signs Vital Signs Date Time Temp Pulse Resp B/P (MAP) Pulse Ox O2 Delivery O2 Flow Rate FiO2 04/10/17 17:37 81 16 180/75 (110) 95 Room Air 04/10/17 16:13 Room Air 04/10/17 16:13 16 99 Room Air 04/10/17 15:46 97.6 80 16 162/72 (102) 98 Physical Exam GENERAL: This is a well-nourished, obese, well-developed patient, in no apparent distress. Pleasant SKIN: Purpuric lesions on forearms/arms. Left foot dorsum with erythematous patch with slightly raised borders and few satellite lesions, similar patch/ plaque on right distal LE. Cool and dry. HEAD: Atraumatic. Normocephalic. No temporal or scalp tenderness. EYES: Pupils equal round and reactive. Extraocular motions intact. No scleral icterus. No injection or drainage. ENT: Nose without bleeding, purulent drainage or septal hematoma. Airway patent. NECK: Trachea midline. No JVD or lymphadenopathy. Supple, nontender, no meningeal signs. CARDIOVASCULAR: Regular rate and rhythm without murmurs, gallops, or rubs. RESPIRATORY: Clear to auscultation. Breath sounds equal bilaterally. No wheezes , rales, or rhonchi. GASTROINTESTINAL: Abdomen soft, non-tender, nondistended. No hepato-splenomegaly , or palpable masses. No guarding. BS wnl. MUSCULOSKELETAL: Extremities without clubbing, cyanosis. 1+ edema distal LE. No joint tenderness, effusion, or edema noted. No calf tenderness. NEUROLOGICAL: Awake and alert. Cranial nerves II through XII intact. Five out of 5 muscle strength in all muscle groups. Slight tremor in UE intermittently. Normal speech. Laboratory Laboratory Tests Test 04/10/17 16:30 White Blood Count 7.8 Red Blood Count 3.66 Hemoglobin 11.7 Hematocrit 33.7 Mean Corpuscular Volume 91.9 Mean Corpuscular Hemoglobin 32.0 Mean Corpuscular Hemoglobin Concent 34.8 Red Cell Distribution Width 14.2 Platelet Count 248 Mean Platelet Volume 8.3 Neutrophils (%) (Auto) 70.3 Lymphocytes (%) (Auto) 18.7 Monocytes (%) (Auto) 9.3 Eosinophils (%) (Auto) 1.4 Basophils (%) (Auto) 0.3 Neutrophils # (Auto) 5.5 Lymphocytes # (Auto) 1.5 Monocytes # (Auto) 0.7 Eosinophils # (Auto) 0.1 Basophils # (Auto) 0.0 CBC Comment DIFF FINAL Differential Comment Prothrombin Time 10.0 Prothromb Time International Ratio 1.0 Activated Partial Thromboplast Time 18.2 Urine Collection Type CLEAN CATCH Urine Color YELLOW Urine Turbidity SLIGHT Urine pH 5.5 Urine Specific [place] 1.010 Urine Protein NEG Urine Glucose (UA) NEG Urine Ketones TRACE Urine Occult Blood NEG Urine Nitrite NEG Urine Bilirubin NEG Urine Leukocyte Esterase TRACE Urine WBC 6-8 Urine Squamous Epithelial Cells 0-5 Urine Amorphous Sediment MOD Microscopic Urinalysis Comment CULT NOT INDICATED Urine Collection Time 1630 Blood Urea Nitrogen 31 Creatinine 0.99 Random Glucose 111 Total Protein 7.0 Albumin 3.4 Calcium Level 9.5 Alkaline Phosphatase 61 Aspartate Amino Transf (AST/SGOT) 14 Alanine Aminotransferase (ALT/SGPT) 8 Total Bilirubin 0.5 Sodium Level 134 Potassium Level 4.4 Chloride Level 101 Carbon Dioxide Level 27.3 Anion Gap 6 Estimat Glomerular Filtration Rate 53 Lipase 254 Result Diagram: 04/10/17 1630 04/10/17 1630 Caprini VTE Risk Assessment Caprini VTE Risk Assessment: Mod/High Risk (score >= 2) Caprini Risk Assessment Model Point Value = 1 Point Value = 2 Point Value = 3 Point Value = 5 Age 41-60 Minor surgery BMI > 25 kg/m2 Swollen legs Varicose veins or History of unexplained or recurrent spontaneous Oral contraceptives or hormone replacement Sepsis (< 1 month) Serious lung disease, including pneumonia (< 1 month) Abnormal pulmonary function Acute myocardial infarction Congestive heart failure (< 1 month) History of inflammatory bowel disease Medical patient at bed rest Age 61-74 Arthroscopic surgery Major open surgery (> 45 min) Laparoscopic surgery (> 45 min) Malignancy Confined to bed (> 72 hours) Immobilizing plaster cast Central venous access Age >= 75 History of VTE Family history of VTE Factor V Leiden Prothrombin [id number] Lupus anticoagulant Anticardiolipin antibodies Elevated serum homocysteine Heparin-induced thrombocytopenia Other congenital or acquired thrombophilia Stroke (< 1 month) Elective arthroplasty Hip, pelvis, or leg fracture Acute spinal cord injury (< 1 month) Prophylaxis Regimen Total Risk Factor Score Risk Level Prophylaxis Regimen 0-1 Low Early ambulation 2 Moderate Order ONE of the following: *Sequential Compression Device (SCD) *Heparin 5000 units SQ BID 3-4 Higher Order ONE of the following medications: *Heparin 5000 units SQ TID *Enoxaparin/Lovenox 40 mg SQ daily (WT < 150 kg, CrCl > 30 mL/min) *Enoxaparin/Lovenox 30 mg SQ daily (WT < 150 kg, CrCl > 10-29 mL/min) *Enoxaparin/Lovenox 30 mg SQ BID (WT < 150 kg, CrCl > 30 mL/min) AND/OR *Sequential Compression Device (SCD) 5 or more Highest Order ONE of the following medications: *Heparin 5000 units SQ TID (Preferred with Epidurals) *Enoxaparin/Lovenox 40 mg SQ daily (WT < 150 kg, CrCl > 30 mL/min) *Enoxaparin/Lovenox 30 mg SQ daily (WT < 150 kg, CrCl > 10-29 mL/min) *Enoxaparin/Lovenox 30 mg SQ BID (WT < 150 kg, CrCl > 30 mL/min) AND *Sequential Compression Device (SCD) Assessment and Plan Problem List: (1) Heme positive stool ICD Codes: R19.5 - Other fecal abnormalities Status: Acute Plan: VSS and Hb relatively stable. Will monitor overnight to make sure no acute worsening given Dr Adams's findings today on office exam. If VSS and Hb relatively stable, will plan d/c home with outpt GI w/u tomorrow. Will hold Plavix, ASA for now, but will need to be cautious in prolonged holding of all antiplatelet agents given her hx of TIAs. D/W Dr Adams. (2) Syncope ICD Codes: R55 - Syncope and collapse Status: Chronic Plan: Last event was appx 2 weeks ago and occurred after she stood from seated position. Reportedly has had neg loop recorder, but I don't have those results. Holter noted for few PVCs/PACs in 2013, but no significant arrhythmia. Will keep on Tele and check orthostatics. Possibly some dysautonomia due to Parkinson's. (3) Type 2 diabetes mellitus ICD Codes: E11.9 - Type 2 diabetes mellitus without complications Status: Chronic Plan: Stable on diet control. A1c 6.7 earlier in Mar 2017. Accu check, DM diet (4) Hypertension ICD Codes: I10 - Essential (primary) hypertension Status: Chronic Plan: BP actually a bit low in PCP office today. Will continue meds as BP high in ER. Follow vitals. Code Status full Discussed Condition With Pt, ER provider, Dr Adams, pt's caregiver Problem Qualifiers (1) Type 2 diabetes mellitus: Julio Lpoez MD PhD Apr 10, 2017 19:20
[2017-04-10] MEDS ORDERED: ATENOLOL 50 MG TAB PO SCH (21:00)
[2017-04-10 21:02] VITALS: BP 142/70; PULSE 85; RESP 16; O2SAT 97
[2017-04-10] MEDS: BETAMETHASONE/CLOTRIMAZOLE CREAM 15 GM TOPICAL SCH (21:03)
[2017-04-10 21:18] VITALS: BP 113/53; PULSE 86; RESP 20; TEMP 96.2; O2SAT 95
[2017-04-10 21:30] VITALS: PULSE 88
[2017-04-11] VITALS: BP_SYST 136; BP_SYST 160; BP_DIAS 64; PULSE 79; RESP 20; TEMP 96.5; O2SAT 94
[2017-04-11 04:00] VITALS: BP 151/67; PULSE 69; RESP 20; TEMP 96.8; O2SAT 97
[2017-04-11 07:16] LABS: AUTOMATED NEUTROPHIL # 3.9 TH/MM3 (1.8-7.7); BASOPHIL % 0.3 % (0.0-2.0); EOSINOPHIL # 0.1 TH/MM3 (0-0.4); EOSINOPHIL % 1.9 % (0.0-4.0); HEMATOCRIT 29.2 % (35.0-46.0); HEMOGLOBIN 10.1 GM/DL (11.6-15.3); LYMPH % 23.1 % (9.0-44.0); LYMPHOCYTE # 1.4 TH/MM3 (1.0-4.8); MEAN CELL VOLUME 93.1 FL (80.0-100.0); MEAN CORPUSCULAR HEMOGLOBIN 32.2 PG (27.0-34.0); MEAN CORPUSCULAR HGB CONC 34.6 % (32.0-36.0); MEAN PLATELET VOLUME 8.1 FL (7.0-11.0); MONO % 9.3 % (0.0-8.0); MONOCYTE # 0.5 TH/MM3 (0-0.9); NEUT % 65.4 % (16.0-70.0); PLATELET COUNT 208 TH/MM3 (150-450); RED BLOOD COUNT 3.14 MIL/MM3 (4.00-5.30); RED CELL DISTRIBUTION WIDTH 14.1 % (11.6-17.2); WHITE BLOOD COUNT 5.9 TH/MM3 (4.0-11.0)
--- NOTE | 2017-04-11 07:46 | HHI.PR ---
Subjective Remarks Patient reports she has felt fine overnight. She had one bowel movement last night but is not aware if it was dark. She says it did not have any red blood in it that she could see. Denies chest pain or shortness of breath. I have reviewed with her the possible etiology of her orthostatic hypotension at length including Parkinson's dysautonomia, Parkinson's medications, dehydration, blood loss or even arrhythmia. Objective Vitals Vital Signs Date Time Temp Pulse Resp B/P (MAP) Pulse Ox O2 Delivery O2 Flow Rate FiO2 04/11/17 04:00 96.8 69 20 151/67 (95) 97 04/11/17 00:00 96.5 79 20 160/72 (101) 94 138/63 (88) 136/64 (88) 04/10/17 21:30 88 04/10/17 21:18 96.2 86 20 113/53 (73) 95 04/10/17 21:18 96.2 86 20 113/53 (73) 95 04/10/17 21:02 85 16 142/70 (94) 97 04/10/17 17:37 81 16 180/75 (110) 95 Room Air 04/10/17 16:13 Room Air 04/10/17 16:13 16 99 Room Air 04/10/17 15:46 97.6 80 16 162/72 (102) 98 GENERAL: No acute distress, alert and oriented, cooperative. SKIN: Warm and dry. Purpuric lesions on forearms. Erythematous patch/plaque lesions right lower extremity and dorsum of left foot. HEAD: Normocephalic. EYES: No scleral icterus. No injection or drainage. Extraocular motion intact. NECK: Supple, trachea midline. No JVD or lymphadenopathy. CARDIOVASCULAR: Regular rate and rhythm without murmurs, gallops, or rubs. RESPIRATORY: Breath sounds equal bilaterally. No accessory muscle use. GASTROINTESTINAL: Abdomen soft, non-tender, nondistended. Bowel sounds normal. MUSCULOSKELETAL: No cyanosis. Trace to 1+ edema distal lower extremities. BACK: No CVA tenderness. NEURO: No tremor. No flat facies or obvious bradykinesia Result Diagram: 04/11/17 0617 04/10/17 1630 Urinary Catheter: No Vascular Central Line Catheter: No A/P Problem List: (1) Heme positive stool ICD Codes: R19.5 - Other fecal abnormalities Status: Acute Plan: VSS and outpatient Hb relatively stable. Hemoglobin did drop a bit this morning however vitals remained stable. It is noted that she received approximately 2 L of IV fluids based on electronic health record review. Hence the drop may be iatrogenic dilutional in etiology. We will follow up hemoglobin around noon. If no significant change will likely discharge home. Case discussed with Dr. Bains in GI who advises that if she is discharged home today, he can see her Friday or Friday of next week to set up scopes for next week. We will provide Protonix, hold alendronate and aspirin but continue the Plavix given her history of TIAs. (2) Syncope ICD Codes: R55 - Syncope and collapse Status: Chronic Plan: Last event was appx 2 weeks ago and occurred after she stood from seated position. Reportedly has had neg loop recorder, but I don't have those results. Holter noted for few PVCs/PACs in 2013, but no significant arrhythmia. Will keep on Tele and check orthostatics. Possibly some dysautonomia due to Parkinson's. (3) Type 2 diabetes mellitus ICD Codes: E11.9 - Type 2 diabetes mellitus without complications Status: Chronic Plan: Stable on diet control. A1c 6.7 earlier in Mar 2017. Accu check, DM diet (4) Hypertension ICD Codes: I10 - Essential (primary) hypertension Status: Chronic Plan: BP actually a bit low in PCP office yesterday. Will continue meds as BP high in ER. Follow vitals. She does appear somewhat orthostatic on vitals done in the hospital. This may be associated with the Parkinson's or Parkinson's medications. I have discussed with her the need to change positions slowly and give at least 10 seconds in between position shifts, i.e from lying to sitting and sitting to standing and standing to walking. She will use an assistive device to walk and has a walker at home. Problem Qualifiers (1) Type 2 diabetes mellitus: Julio Lopez MD PhD Apr 11, 2017 07:46
[2017-04-11 08:00] VITALS: BP 187/84; PULSE 66; RESP 18; TEMP 96; O2SAT 96
[2017-04-11] MEDS ORDERED: PANTOPRAZOLE SOD 40 MG DELAYED RELEASE TAB PO SCH (09:00)
[2017-04-11] MEDS ORDERED: NON-FORMULARY DRUG (Alpha Lipoic Acid 200 MG) PO SCH (09:00)
[2017-04-11] MEDS ORDERED: CHOLECALCIFEROL (VIT D3) 1000 UNIT TAB PO SCH (09:00)
[2017-04-11] MEDS ORDERED: LISINOPRIL 5 MG TAB PO SCH (09:00)
[2017-04-11] MEDS ORDERED: PRAVASTATIN SOD 40 MG TAB PO SCH (09:00)
[2017-04-11] MEDS ORDERED: METOPROLOL TARTRATE 25 MG TAB PO SCH (09:00)
[2017-04-11] MEDS: CARBIDOPA/LEVODOPA 25 MG/100 MG TAB PO SCH ×2 (09:50→13:07)
[2017-04-11] MEDS: BETAMETHASONE/CLOTRIMAZOLE CREAM 15 GM TOPICAL SCH (10:19)
[2017-04-11 12:00] VITALS: BP 119/56; PULSE 75; RESP 18; O2SAT 96
[2017-04-11] MEDS ORDERED: LOTR15T TOPICAL (14:34)
[2017-04-11] MEDS ORDERED: METO25TA3 PO (14:34)
[2017-04-11] MEDS ORDERED: PANT40TA3 PO (14:34)
== END 2017-04-11 15:40 | disposition home or self-care (01) ==
LOC: PHED 15:42 → PHEDA 18:41 → PH3B 21:12
PROVIDERS: ADMIT Legal Medicine; ATTEND Legal Medicine
DX: R19.5 Other fecal abnormalities (principal); K92.2 Gastrointestinal hemorrhage, unspecified; B35.4 Tinea corporis; I95.1 Orthostatic hypotension; R55 Syncope and collapse; R42 Dizziness and giddiness; R25.1 Tremor, unspecified; I10 Essential (primary) hypertension; E78.00 Pure hypercholesterolemia, unspecified; I27.20 Pulmonary hypertension, unspecified; E03.9 Hypothyroidism, unspecified; E11.40 Type 2 diabetes mellitus with diabetic neuropathy, unspecified; E11.51 Type 2 diabetes mellitus with diabetic peripheral angiopathy without gangrene; E11.21 Type 2 diabetes mellitus with diabetic nephropathy; G20 Parkinson's disease; M25.50 Pain in unspecified joint; M51.36 Other intervertebral disc degeneration, lumbar region; M47.9 Spondylosis, unspecified; F41.9 Anxiety disorder, unspecified; H91.90 Unspecified hearing loss, unspecified ear; Z86.73 Personal history of transient ischemic attack (TIA), and cerebral infarction without residual deficits; Z79.82 Long term (current) use of aspirin; Z79.02 Long term (current) use of antithrombotics/antiplatelets; Z96.651 Presence of right artificial knee joint; Z88.2 Allergy status to sulfonamides
CPT/HCPCS: 80053; 81001; 82948; 83690; 85018; 85025; 85610; 85730; 86850; 86900; 86901; 96361; 96374; 99285; C9113; G0378; J7030

== ENCOUNTER → 2017-04-22 | Outpatient (CLI) | payer MEDICARE ==
[~2017-04-22] MED LIST changes: -ASPI81CH6 CHEW; -ATEN50TA PO; +CHLORHEXIDINE GLUCONATE 2 % 1 PACK (2 CLOTHS) TOPICAL PRN; -FOSA70TA PO; +INSULIN HUMAN REGULAR 1,000 UNITS/10 ML VIAL SQ PRN; +LACTATED RINGER'S 1000 ML IV PRN; +LIDOCAINE HCL 1% PF 5 ML SYRINGE OTHER ONE; +LOTR15T TOPICAL; +METOPROLOL TARTRATE 25 MG TAB PO PRN; +PANT40TA3 PO; +POVIDONE IODINE 5% (ANTISEPSIS KIT) 4 APPLICATIONS EACH NARE PRN; +PROPOFOL 200 MG/20 ML AMP IV ONE; +SODIUM CHLORID 0.9% 500 ML IV PRN
--- NOTE | 2017-04-22 10:12 | GIPROC ---
[facility] [address] [facility], [address] EGD PROCEDURE REPORT EXAM DATE: 04/22/2017 PATIENT NAME: Alice Bird MR #: [id number] BIRTHDATE: 1930 ATTENDING: Seymour Tran MD ORDER #: [id number] HVAC DESIGNER: Justin Man and Juliette Hewitt STATUS: outpatient INDICATIONS: The patient is a 86 yr old female here for an EGD due to melena PROCEDURE PERFORMED: EGD w/ biopsy MEDICATIONS: None and Per Anesthesia. TOPICAL ANESTHETIC: none CONSENT: The patient understands the risks and benefits of the procedure and understands that these risks include, but are not limited to: sedation, allergic reaction, infection, perforation and/or bleeding. Alternative means of evaluation and treatment include, among others: physical exam, x-rays, and/or surgical intervention. The patient elects to proceed with this endoscopic procedure. medical equipment was checked for proper function. Hand hygiene and appropriate measures for infection prevention was taken. After the risks, benefits and alternatives of the procedure were thoroughly explained, Informed consent was verified, confirmed and timeout was successfully executed by the treatment team. The patient was anesthetized with topical anesthesia and the [employer] [id number] endoscope was introduced through the mouth and advanced to the second portion of the duodenum. Retroflexion was performed and was normal The gastroscope was then slowly withdrawn and removed. ESOPHAGUS: The mucosa of the esophagus appeared normal. STOMACH: A medium sized non-bleeding, irregular shaped and clean-based ulcer was found in the gastric antrum. Biopsies were taken at the center of the ulcer and at edge of the ulcer. DUODENUM: The duodenal mucosa appeared normal in the bulb and second portion of the duodenum. ADVERSE EVENTS: There were no complications. IMPRESSIONS: 1. The esophagus appeared normal 2. Medium sized ulcer was found in the gastric antrum; biopsies were taken 3. Normal duodenal mucosa in the bulb and second portion of the duodenum 4. Retroflexion was performed and was normal RECOMMENDATIONS: 1. Await biopsy results. Biopsy results will not be ready for 7-10 days. If you don't hear from us in two weeks, call our office for biopsy results. 2. Continue PPI PATIENT CONDITION: stable DISPOSITION: Observation REPEAT EXAM: NONE Seymour Tran MD eSigned: Seymour Tran MD 04/22/2017 10:12 AM cc: PATIENT NAME: Alice Bird MR#: [id number]
[2017-04-22 10:50] VITALS: BP 150/69; PULSE 93; RESP 20; TEMP 96.7; O2SAT 100
== END ==
LOC: HSDC 07:57
PROVIDERS: ATTEND Specialist
DX: K92.1 Melena (principal); K25.9 Gastric ulcer, unspecified as acute or chronic, without hemorrhage or perforation; R10.9 Unspecified abdominal pain; R12 Heartburn
CPT/HCPCS: 00731; 43239; 88305; 88312; J7120